=== PATIENT | female | born 1965 | race Caucasian/White ===

== ENCOUNTER → 2016-04-14 | Outpatient (CLI) | payer MEDICARE ==
--- NOTE | 2016-04-14 17:48 | CT ---
EXAMINATION TYPE: CT sinus wo con DATE OF EXAM: 04/14/2016 5:32 PM COMPARISON: NONE HISTORY: PT states of chronic sinus infections and headaches. CT DLP: 602 mGycm Automated exposure control for dose reduction was used. FINDINGS: There is previous surgery with osteotomy of the medial wall of the maxillary sinuses. There is normal aeration of the paranasal sinuses. I see no bony destructive process. Orbital margins are intact. Ma xilla is intact. There is normal aeration of the visualized mastoid air cells. I see no bony destruct annemarie process. IMPRESSION: NEGATIVE CT SCAN OF THE PARANASAL SINUSES.
== END | disposition home or self-care (01) ==
LOC: MERGE 17:12 → RADCTMAIN 17:12
PROVIDERS: ATTEND Otolaryngology
DX: J32.9 Chronic sinusitis, unspecified (principal)
CPT/HCPCS: 70486

== ENCOUNTER 2016-05-07 13:09 | Emergency (ER) | payer MEDICARE, OTHER ==
[2016-05-07 13:18] VITALS: BP 176/87; PULSE 70; RESP 18; TEMP 98.6
--- NOTE | 2016-05-07 14:15 | ED ---
General Adult HPI - General Chief complaint: Dental/Oral Stated complaint: left side pain, speech issues Time Seen by Provider: 05/07/16 13:49 Source: patient Mode of arrival: ambulatory Limitations: no limitations - History of Present Illness Initial comments: This is a 51-year-old female presents emergency department for left-sided facial pain. The patient has a history of multiple sinus surgeries and sinusitis in the past. She states that she was laying down also got an intense throbbing shooting pain on the left side of her face. She states that it then radiated down into her neck and she felt like she had a raspy voice. She states that this lasted proximally one hour. She took a Motrin and it went away. She denied any slurred speech or difficult swallowing. No weakness in her upper or lower extremities. No facial drooping per family. The patient denies any history of this in the past. She does have a history of fibromyalgia as well. She currently states that her symptoms have mostly resolved and she has no discomfort at this time. No other complaints. - Related Data Previous Rx's Medication Instructions Recorded carBAMazepine [Carbatrol] 200 mg PO Q12H #20 cpmp.12hr 05/07/16 Allergies Allergy/AdvReac Type Severity Reaction Status Date / Time No Known Allergies Allergy Verified 05/07/16 13:18 Review of Systems ROS Statement: Those systems with pertinent positive or pertinent negative responses have been documented in the HPI. ROS Other: All systems not noted in ROS Statement are negative. Past Medical History Past Medical History: Fibromyalgia, Hyperlipidemia History of Any Multi-Drug Resistant Organisms: None Reported Past Surgical History: Section Additional Past Surgical History / Comment(s): Sinus surgery Past Psychological History: No Psychological Hx Reported Smoking Status: Current every day smoker Past Alcohol Use History: None Reported Past Drug Use History: None Reported General Exam - General Exam Comments Initial Comments: Constitutional: Awake alert Appears comfortable Head: Normocephalic atraumatic , mild tenderness to palpation over the left cheek and anterior to the left auricle Eyes: no conjunctival injection No scleral icterus EOMI ENT: TMs clear bilaterally, oropharynx is nonerythematous and non-edematous, no sinus tenderness, no rhinitis, no rhinorrhea Neck: No JVD Supple Heart: Regular rate rhythm normal S1-S2 no murmurs Lungs: Clear to auscultation bilaterally No wheezing No rales Abdomen: Soft nondistended nontender Extremities: Non edematous DP pulses intact Radial pulses intact Neuro: A&Ox3 renal nerves II through XII are grossly intact, 5 out of 5 strength in upper and lower extremities bilaterally, no ataxia on examination, no sensory deficits. Psych: Appropriate mood and affect Limitations: no limitations Course Vital Signs 05/07/16 13:14 Temperature 98.6 F Pulse Rate 70 Respiratory 18 Rate Blood Pressure 176/87 O2 Sat by Pulse 99 Oximetry Medical Decision Making - Medical Decision Making Is a 51-year-old female presented for left facial pain that since resolved. Patient has no focal findings on examination. This time I thinking the patient may have trigeminal neuralgia based on her symptoms and the intensity of them. Since this is her first time I recommended that she follow-up with her primary doctor in Dr. Morales with neurology. I did write her a prescription for carbamazepine however told her not to start it unless she has recurrent symptoms and after she's been evaluated by Dr. Cuellar. She can return if she has worsening or changing symptoms. All questions were answered. Disposition Clinical Impression: Facial pain Disposition: HOME SELF-CARE Condition: Stable Instructions: Trigeminal Neuralgia (ED) Prescriptions: carBAMazepine [Carbatrol] 200 mg PO Q12H #20 cpmp.12hr Referrals: Ho Ford MD [Primary Care Provider] - 1-2 days Xi Morlaes MD [STAFF PHYSICIAN] - 1-2 days
== END 2016-05-07 14:34 | disposition home or self-care (01) ==
LOC: EC 13:09
DX: R51 Headache (principal); F17.200 Nicotine dependence, unspecified, uncomplicated
CPT/HCPCS: 99283

== ENCOUNTER 2016-07-14 20:26 | Emergency (ER) | payer MEDICARE, OTHER ==
[2016-07-14] MEDS ORDERED: IPRATROPIUM-ALBUTEROL 3 ML NEB INHALATION STA (21:37)
--- NOTE | 2016-07-14 21:42 | ED ---
General Adult HPI - General Chief complaint: Upper Respiratory Infection Stated complaint: SOB Time Seen by Provider: 07/14/16 21:15 Source: patient, RN notes reviewed Mode of arrival: ambulatory Limitations: no limitations - History of Present Illness Initial comments: Patient is a 51-year-old female presents to the emergency room for evaluation of shortness of breath. Patient states she developed cough and congestion on Thursday. Patient states she went to her primary care provider on and was placed on Augmentin and steroid taper for bronchitis. Patient states she began taking medications on Thursday. Patient states while lying in bed this afternoon she feel rattling in her chest and began feeling chest tightness. Patient states she has been feeling increasingly short of breath. Patient denies any significant chest pain. Patient does state that she feels very clammy. Patient states she smokes about half pack per day. Patient denies dizziness or headache. Patient denies nausea or vomiting. Patient denies abdominal pain. Patient states she is coughing up a slight amount of sputum. Patient states she is here to make sure she doesn't have pneumonia. - Related Data Home Medications Medication Instructions Recorded Confirmed Pregabalin [Lyrica] 300 mg PO BID 02/08/14 07/14/16 traMADol HCL [Ultram] 50 mg PO BID 02/08/14 07/14/16 Albuterol Sulfate [Ventolin HFA] 2 puff INHALATION RT-Q6H PRN 07/14/16 07/14/16 Amoxicillin/Potassium Clav 2 tab PO Q12HR 07/14/16 07/14/16 [Augmentin Xr 1,000-62.5 Tab] Dexamethasone See Taper PO DIRECTED 07/14/16 07/14/16 Previous Rx's Medication Instructions Recorded Albuterol Inhaler [Ventolin Hfa 1 - 2 puff INHALATION Q6HR PRN #1 07/14/16 Inhaler] inhaler Allergies Allergy/AdvReac Type Severity Reaction Status Date / Time No Known Allergies Allergy Verified 07/14/16 22:06 Review of Systems ROS Statement: Those systems with pertinent positive or pertinent negative responses have been documented in the HPI. ROS Other: All systems not noted in ROS Statement are negative. Past Medical History Past Medical History: Fibromyalgia, Hyperlipidemia Additional Past Medical History / Comment(s): UTI , bronchitis, kidney stones History of Any Multi-Drug Resistant Organisms: None Reported Past Surgical History: Section, Uterine Ablation Additional Past Surgical History / Comment(s): sinus surgery x 3 Past Psychological History: Depression, No Psychological Hx Reported Smoking Status: Current every day smoker Past Alcohol Use History: None Reported Past Drug Use History: None Reported General Exam - General Exam Comments Initial Comments: Sitting in exam room, no acute distress. Limitations: no limitations General appearance: alert, in no apparent distress Head exam: Present: atraumatic, normocephalic, normal inspection Eye exam: Present: normal appearance ENT exam: Present: normal exam Neck exam: Present: normal inspection Respiratory exam: Present: normal lung sounds bilaterally. Absent: respiratory distress Cardiovascular Exam: Present: regular rate, normal rhythm, normal heart sounds Extremities exam: Present: normal inspection Back exam: Present: normal inspection Neurological exam: Present: alert, oriented X3, CN II-XII intact, normal gait Psychiatric exam: Present: normal affect, normal mood Skin exam: Present: warm, dry, intact, normal color. Absent: rash Course Vital Signs 07/14/16 07/14/16 07/14/16 20:36 22:13 22:24 Temperature 98.4 F Pulse Rate 73 73 75 Respiratory 20 Rate Blood Pressure 164/88 O2 Sat by Pulse 99 Oximetry 07/15/16 00:05 Temperature 98.3 F Pulse Rate 68 Respiratory 18 Rate Blood Pressure 148/86 O2 Sat by Pulse 98 Oximetry EKG Findings - EKG Comments: EKG Findings:: Normal sinus rhythm, ventricular rate 65 bpm, IA interval 134 ms , QRS duration 68 ms, QT/QTC 410/426 ms Medical Decision Making - Medical Decision Making Patient is a 51-year-old female presents emergency room for evaluation of chest tightness and cough. Cardiac workup negative for concerning findings. Chest x- ray negative for pneumonia, pleural effusions or pneumothorax. Patient states she feels better after nebulizer treatment. Other labs within normal limits. Advised patient to continue on medications prescribed to her and we'll add on an inhaler as needed. Discussed with patient smoking cessation. Patient states she understands everything that was discussed with her. Return parameters discussed. Case discussed with Dr. Teague. - Lab Data Result diagrams: 07/14/16 21:50 07/14/16 21:50 Lab Results 07/14/16 07/14/16 07/14/16 Range/Units 21:50 21:50 21:50 WBC 6.4 (3.8-10.6) k/uL RBC 5.31 (3.80-5.40) m/uL Hgb 15.7 (11.4-16.0) gm/dL Hct 48.7 H (34.0-46.0) % MCV 91.9 (80.0-100.0) fL MCH 29.7 (25.0-35.0) pg MCHC 32.3 (31.0-37.0) g/dL RDW 14.3 (11.5-15.5) % Plt Count 300 (150-450) k/uL Neutrophils % 77 % Lymphocytes % 18 % Monocytes % 3 % Eosinophils % 0 % Basophils % 0 % Neutrophils # 5.0 (1.3-7.7) k/uL Lymphocytes # 1.1 (1.0-4.8) k/uL Monocytes # 0.2 (0-1.0) k/uL Eosinophils # 0.0 (0-0.7) k/uL Basophils # 0.0 (0-0.2) k/uL PT (9.0-12.0) sec INR (<1.1) APTT (22.0-30.0) sec D-Dimer (<0.60) mg/L FEU Sodium (137-145) mmol/L Potassium (3.5-5.1) mmol/L Chloride (98-107) mmol/L Carbon Dioxide (22-30) mmol/L Anion Gap mmol/L BUN (7-17) mg/dL Creatinine (0.52-1.04) mg/dL Est GFR (MDRD) Af Amer (>60 ml/min/1.73 sqM) Est GFR (MDRD) Non-Af (>60 ml/min/1.73 sqM) Glucose (74-99) mg/dL Calcium (8.4-10.2) mg/dL Magnesium (1.6-2.3) mg/dL Total Bilirubin (0.2-1.3) mg/dL AST (14-36) U/L ALT (9-52) U/L Alkaline Phosphatase (38-126) U/L Total Creatine Kinase 94 (30-135) U/L CK-MB (CK-2) 0.4 (0.0-2.4) ng/mL CK-MB (CK-2) Rel Index 0.4 Troponin I <0.012 (0.000-0.034) ng/mL Total Protein (6.3-8.2) g/dL Albumin (3.5-5.0) g/dL Influenza Type A RNA Not Detected (Not Detectd) Influenza Type B (PCR) Not Detected (Not Detectd) 07/14/16 07/14/16 Range/Units 21:50 21:50 WBC (3.8-10.6) k/uL RBC (3.80-5.40) m/uL Hgb (11.4-16.0) gm/dL Hct (34.0-46.0) % MCV (80.0-100.0) fL MCH (25.0-35.0) pg MCHC (31.0-37.0) g/dL RDW (11.5-15.5) % Plt Count (150-450) k/uL Neutrophils % % Lymphocytes % % Monocytes % % Eosinophils % % Basophils % % Neutrophils # (1.3-7.7) k/uL Lymphocytes # (1.0-4.8) k/uL Monocytes # (0-1.0) k/uL Eosinophils # (0-0.7) k/uL Basophils # (0-0.2) k/uL PT 9.7 (9.0-12.0) sec INR 0.9 (<1.1) APTT 22.8 (22.0-30.0) sec D-Dimer 0.55 (<0.60) mg/L FEU Sodium 145 (137-145) mmol/L Potassium 4.9 (3.5-5.1) mmol/L Chloride 108 H (98-107) mmol/L Carbon Dioxide 24 (22-30) mmol/L Anion Gap 13 mmol/L BUN 12 (7-17) mg/dL Creatinine 0.71 (0.52-1.04) mg/dL Est GFR (MDRD) Af Amer >60 (>60 ml/min/1.73 sqM) Est GFR (MDRD) Non-Af >60 (>60 ml/min/1.73 sqM) Glucose 106 H (74-99) mg/dL Calcium 9.9 (8.4-10.2) mg/dL Magnesium 2.1 (1.6-2.3) mg/dL Total Bilirubin 0.7 (0.2-1.3) mg/dL AST 37 H (14-36) U/L ALT 56 H (9-52) U/L Alkaline Phosphatase 107 (38-126) U/L Total Creatine Kinase (30-135) U/L CK-MB (CK-2) (0.0-2.4) ng/mL CK-MB (CK-2) Rel Index Troponin I (0.000-0.034) ng/mL Total Protein 8.4 H (6.3-8.2) g/dL Albumin 4.7 (3.5-5.0) g/dL Influenza Type A RNA (Not Detectd) Influenza Type B (PCR) (Not Detectd) - Radiology Data Radiology results: report reviewed, image reviewed Disposition Clinical Impression: Upper respiratory infection Disposition: HOME SELF-CARE Condition: Good Instructions: Upper Respiratory Infection (ED), How to Stop Smoking (ED) Additional Instructions: Continue with prescribed medications as directed. Use inhaler as needed. Refrain from smoking. Please follow up with primary care provider in 1-2 days. If any new symptom arises or symptoms worsen, return to ER as soon as possible. Prescriptions: Albuterol Inhaler [Ventolin Hfa Inhaler] 1 - 2 puff INHALATION Q6HR PRN #1 inhaler PRN Reason: Shortness Of Breath Referrals: Ho Ford MD [Primary Care Provider] - 1-2 days Time of Disposition: 23:55
[2016-07-14 22:20] LABS: Basophils % (A) 0 %; CH 30.4; CHCM 33.4; Eosinophils % (A) 0 %; HCT 48.7 % (34.0-46.0); HDW 2.81; HGB 15.7 gm/dL (11.4-16.0); Luc % (Auto) 2; Lymphocytes # (A) 1.1 k/uL (1.0-4.8); Lymphocytes % (A) 18 %; MCH 29.7 pg (25.0-35.0); MCHC 32.3 g/dL (31.0-37.0); MCV 91.9 fL (80.0-100.0); Monocytes # (A) 0.2 k/uL (0-1.0); Monocytes % (A) 3 %; Neutrophils % (A) 77 %; RBC 5.31 m/uL (3.80-5.40); RDW 14.3 % (11.5-15.5); WBC 6.4 k/uL (3.8-10.6); WBC (Perox) 6.46
[2016-07-14 22:31] LABS: INR 0.9 (<1.1); Partial Thromboplastin Time 22.8 sec (22.0-30.0); Prothrombin Time 9.7 sec (9.0-12.0)
[2016-07-14 22:38] LABS: ALT 56 U/L (9-52); AST 37 U/L (14-36); Alkaline Phosphatase 107 U/L (38-126); Blood Urea Nitrogen 12 mg/dL (7-17); Calcium 9.9 mg/dL (8.4-10.2); Carbon Dioxide 24 mmol/L (22-30); Glucose 106 mg/dL (74-99); Magnesium 2.1 mg/dL (1.6-2.3); Non-African American GFR(MDRD) >60 (>60 ml/min/1.73 sqM); Potassium 4.9 mmol/L (3.5-5.1); Sodium 145 mmol/L (137-145); Total Bilirubin 0.7 mg/dL (0.2-1.3); Total Protein 8.4 g/dL (6.3-8.2)
[2016-07-14 22:42] LABS: Anion Gap 13 mmol/L; Chloride 108 mmol/L (98-107)
[2016-07-14 22:43] LABS: Creatine Kinase 94 U/L (30-135)
[2016-07-14 22:56] LABS: Creatine Kinase MB 0.4 ng/mL (0.0-2.4); Troponin I <0.012 ng/mL (0.000-0.034)
--- NOTE | 2016-07-14 23:31 | XR ---
EXAMINATION TYPE: XR chest 2V DATE OF EXAM: 07/14/2016 10:31 PM COMPARISON: 05/26/2014 HISTORY: Chest pain TECHNIQUE: Frontal and lateral views of the chest are obtained. FINDINGS: Heart and mediastinum are normal. Lungs are clear. Diaphragm is normal. Bony thorax is int act. IMPRESSION: Normal chest. No change.
[2016-07-15 00:06] VITALS: BP 148/86; PULSE 68; RESP 18; TEMP 98.3
== END 2016-07-15 00:06 | disposition home or self-care (01) ==
LOC: EC 20:26
DX: J06.9 Acute upper respiratory infection, unspecified (principal); M79.7 Fibromyalgia; F17.200 Nicotine dependence, unspecified, uncomplicated; Z79.899 Other long term (current) drug therapy
CPT/HCPCS: 36415; 71020; 80053; 82550; 82553; 83735; 84484; 85025; 85379; 85610; 85730; 87502; 93005; 94640; 99284

== ENCOUNTER → 2016-07-29 | Outpatient (CLI) | payer MEDICARE, OTHER ==
--- NOTE | 2016-07-29 22:22 | US ---
EXAMINATION TYPE: US kidneys/renal and bladder DATE OF EXAM: 07/29/2016 4:18 PM COMPARISON: NONE CLINICAL HISTORY: 51-year-old female N20.0 Kidney Stone. Right flank/back pain, history of multiple s tones that were removed in 2014 TECHNIQUE: Multiple sonographic images of the kidneys and bladder were obtained. FINDINGS: Right Kidney: 10.9 x 4.5 x 4.5 cm without hydronephrosis. Multiple echogenic foci of present measuri ng 1 cm or less. Left Kidney: 11.1 x 4.7 x 5.5 cm without hydronephrosis. Multiple echogenic foci are present largest measuring 1.2 cm. No gross abnormality of the partially urine distended bladder. Both ureteral jets are visualized. There is an incidental finding of a 5.1 cm simple cyst in the posterior right liver lobe. IMPRESSION: 1. No hydronephrosis. 2. Bilateral nephrolithiasis measuring 1 cm and less on the right and up to 1.2 cm on the left.
== END | disposition home or self-care (01) ==
LOC: MERGE 02-07 14:20 → RADUSWWP 15:56
PROVIDERS: ATTEND Internal Medicine
DX: N20.0 Calculus of kidney (principal)
CPT/HCPCS: 76770

== ENCOUNTER → 2016-08-07 | Outpatient (CLI) | payer MEDICARE, OTHER ==
--- NOTE | 2016-08-07 19:23 | CONS ---
DATE OF CONSULTATION: 08/07/2016 CONSULTATION/NEW PATIENT EVALUATION 51-year-old lady who has been evaluated in [facility] for obstructive sleep apnea-hypopnea syndrome. HISTORY OF PRESENT ILLNESS/SLEEP-WAKE EVALUATION: Patient has history of for obstructive sleep apnea diagnosed in 2012. At that time, apnea-hypopnea index was 17.1 with oxygen desaturation to 83.8%. She was started on treatment. CPAP but secondary to insurance issues she had to return her CPAP machine. SLEEP SCHEDULE: At the present time her sleep schedule is from 11:30 to 1:30 a.m. until 7:00 a.m. on week days and until around 8 to 10 a.m. on weekends. FALLING ASLEEP: Sometimes she has problem with falling asleep. No TV in bedroom. DURING SLEEP: She sleeps on the side position with snoring, witnessed episodes of stopped breathing and awakenings with choking, nocturia, grinding teeth, dry mouth, heartburn, sweating and restless legs. Patient to wake up 4 times from sleep and 4 times she goes to the bathroom. No history of hallucinations, sleep paralysis or cataplexy. DURING THE DAY/WAKE STATE: During the day the patient feels tired, sleepy, has difficulties to pay attention, has problem with memory, concentration, irritability, depression. [place] Sleepiness Scale significantly increased to 15. PAST MEDICAL HISTORY: Positive for fibromyalgia, kidney stones and back problems. PAST SURGICAL HISTORY: Several sinus surgeries. MEDICATIONS: Lyrica, Tramadol. SOCIAL HISTORY: Positive for smoking for about 1 pack a day for 6 years. Alcohol consumption: None. REVIEW OF SYSTEMS: Multiple awakenings from sleep, tiredness and sleepiness during the day. No fevers. No double vision. No recent chest pain. No shortness of breath. No abdominal pain. No bleeding episodes. No blood in urine. No seizure episodes. FAMILY HISTORY: Hypertension, heart problems, hyperlipidemia, stroke, fibromyalgia, arthritis, asthma, sinus problem, bronchitis, lung problems, sleep apnea, snoring, pneumonia, headaches cancer, insomnia, acid reflux, ulcers, diabetes, nasal polyps, thyroid problems, mental illness, restless legs. PHYSICAL EXAMINATION: GENERAL: 51-year-old lady without distress. VITAL SIGNS: BP 165/78, HR 78, RR 12. Height 67-1/2 inches. Weight 206.4. BMI 31.7. Neck 15 inches in circumference. Temp is 97.9. Oxygen saturation at room air 100%. HEENT: PERRLA, EOMI. Evaluation of oropharynx showed low position of soft palate. Nose, some restriction of nasal breathing on the right side. NECK: Supple. No JVD. Thyroid is not palpable. LUNGS: Clear to percussion and to auscultation. Good air exchange. No wheezing or rhonchi. HEART: S1, S2 regular. No murmurs, gallops or rubs. ABDOMEN: Obese, soft and nontender. Bowel sounds are present. No organomegaly appreciated. EXTREMITIES: No clubbing or cyanosis. SCREEN TENDER: Awake, alert, and oriented x3. Cranial nerves 2 to 7 intact. There is no fasciculation or atrophy noted. No focal deficits observed. IMPRESSION: 1. Snoring, multiple awakenings from sleep with nocturia, low position of soft palate, excessive daytime sleepiness. [place] Sleepiness Scale increased to 15, history of obstructive sleep apnea-hypopnea syndrome in the past, obstructive sleep apnea-hypopnea syndrome. 2. Obesity; body mass index 31.7. 3. History of fibromyalgia. 4. History of kidney stones. 5. Back problems. 6. Status post several sinus surgeries. PLAN: 1. Polysomnography for evaluation of patient's breathing during sleep. 2. CPAP/BiPAP titration if sleep study confirms obstructive sleep apnea-hypopnea syndrome. 3. Preferable position during sleep on the side. 4. No driving if patient feels any sleepiness. Patient is aware of civil and criminal liability for unsafe driving. 5. I will see patient for follow-up visit to explain results of the testing and following plan. Thank you very much for referring this patient for evaluation. Sincerely, Eric Figueroa MD, PhD, FAASM. Diplomat of [place] [employer], Sleep Medicine Board by [place] [employer] [place] [employer] [facility] [place]
== END ==
LOC: SLEEP 15:07
PROVIDERS: ATTEND Internal Medicine
DX: G47.33 Obstructive sleep apnea (adult) (pediatric) (principal); E66.9 Obesity, unspecified; M79.7 Fibromyalgia; Z87.442 Personal history of urinary calculi; Z98.890 Other specified postprocedural states; Z79.899 Other long term (current) drug therapy
CPT/HCPCS: 99211

== ENCOUNTER → 2016-10-15 | Outpatient (CLI) | payer MEDICARE, OTHER ==
--- NOTE | 2016-10-15 17:16 | CT ---
EXAMINATION TYPE: CT abdomen pelvis wo con DATE OF EXAM: 10/15/2016 COMPARISON: 02/08/2014 HISTORY: Left sided flank pain CT DLP: 616.3 mGycm Automated exposure control for dose reduction was used. TECHNIQUE: Helical acquisition of images was performed from the lung bases through the pelvis. FINDINGS: Lung bases are clear of consolidation. There is no pleural effusion. Liver spleen pancreas appear normal. There are clips from cholecystectomy. Bile ducts are not dilated . There is a 4.5 cm cyst in the inferior right lobe of the liver. There is no adrenal mass. Kidneys have normal size and contour. There is no hydronephrosis. There is a 1 cm calculus in the pelvis of the left kidney. There is a faint 2 mm calcification in the right ki dney. There are small calcifications in the lower pole right kidney. There is no retroperitoneal adenopathy . There is no ascites. I see no bony destructive process. Appendix appears normal. There is no ascites. Bladder distends smoothly. There is no pelvic mass. I s ee no intestinal wall thickening. There are no dilated loops. IMPRESSION: THERE IS A CALCULUS IN THE PELVIS AND THE LEFT KIDNEY WITHOUT EVIDENCE OF OBSTRUCTION. THERE IS CLEAR ING OF THE LEFT-SIDED HYDRONEPHROSIS COMPARED TO OLD EXAM. BILATERAL SMALL RENAL CALCULI. STABLE HEPA TIC CYST. NORMAL APPENDIX. THERE IS CLEARING OF THE ATELECTASIS AT THE LUNG BASES COMPARED TO OLD EXA M.
== END | disposition home or self-care (01) ==
LOC: RADCTMAIN 16:20
PROVIDERS: ATTEND Urology
DX: N20.0 Calculus of kidney (principal); N13.30 Unspecified hydronephrosis; K76.89 Other specified diseases of liver
CPT/HCPCS: 74176

== ENCOUNTER → 2017-01-05 | Outpatient (CLI) | payer MEDICARE, OTHER ==
--- NOTE | 2017-01-05 23:07 | MR ---
EXAMINATION TYPE: MR neck wo/w con DATE OF EXAM: 01/05/2017 COMPARISON: NONE HISTORY: swollen glands CONTRAST: Standard multiplanar, multisequence MRI departmental protocol utilizing 10 mL intravenous Gadavist ga dolinium contrast. FINDINGS: There is normal branching pattern of the great vessels on the aortic arch. Thyroid gland is symmetric. Submandibular salivary glands are symmetric. The parotid glands are symmetric. There is n o evidence of a pharyngeal mass. There is metal artifact from dental work on the right mandible. Ther e is no evidence of orbital mass. Epiglottis appears normal. There is normal flow void of carotid arteries and jugular veins. The tongu e is symmetric. The tonsils and adenoids are symmetric. There are a few bilateral anterior triangle c ervical lymph nodes. The largest measures up to 15 mm. There are submandibular lymph nodes up to 10 m m. I see no pathologic enhancement. IMPRESSION: There are a few bilateral nonspecific cervical lymph nodes of uncertain significance. No evidence of salivary gland mass.
== END | disposition home or self-care (01) ==
LOC: RADMRIMAIN 17:09
PROVIDERS: ATTEND Otolaryngology
DX: R22.1 Localized swelling, mass and lump, neck (principal)
CPT/HCPCS: 70543; A9581

== ENCOUNTER 2017-04-29 09:37 | Day surgery (SDC) | payer MEDICARE, OTHER ==
[2017-04-28 08:32] VITALS: BMI 29.9
[~2017-04-29 09:37] MED LIST: LACTATED RINGERS 1,000 ML IV SCH
[2017-04-29 10:39] VITALS: TEMP 97.9
[2017-04-29] MEDS ORDERED: LIDOCAINE 1% 20 ML VIAL (10MG/ML) FOR IV START INTRADERMA ONE (10:48)
[2017-04-29] MEDS ORDERED: PROPOFOL 10 MG/ML 20 ML VIAL IV ONE (11:16)
[2017-04-29] MEDS ORDERED: LIDOCAINE 1% INJ 10MG/ML (20 ML MDV) ONE (11:16)
--- NOTE | 2017-04-29 11:34 | P.PCN ---
Date of Procedure: 04/29/17 Procedure(s) Performed: BRIEF HISTORY: Patient is a 52-year-old pleasant white female, scheduled for an elective colonoscopy as a part of evaluation of left lower quadrant abdominal pain as well as chronic diarrhea for the last 3 weeks' duration. PROCEDURE PERFORMED: Colonoscopy with biopsy. PREOPERATIVE DIAGNOSIS: Abdominal pain/chronic diarrhea of 3 weeks' duration. IV sedation per Anesthesia. PROCEDURE: After informed consent was obtained, the patient, was brought into the endoscopy unit. IV sedation was administered by Anesthesia under continuous monitoring. Digital rectal examination was normal. Initially the Olympus CF- 160 flexible video colonoscope was then inserted in the rectum, gradually advanced into the cecum without any difficulty. Careful examination was performed as the scope was gradually being withdrawn. Ileocecal valve and the appendiceal orifice were visualized and appeared normal. Terminal ileum was intubated and 20 cm visualized and appeared normal. Prep was excellent. Mucosa of the cecum, ascending colon, transverse colon, descending colon, sigmoid colon , and rectum appeared normal. Random biopsies were done from ascending and descending colon to rule out microscopic/collagenous colitis. Retroflexion was performed in the rectum and no lesions were seen. The patient tolerated the procedure well. IMPRESSION: Normal-appearing colon from rectum to cecum with no evidence of colorectal neoplasia or colitis . RECOMMENDATIONS: Findings of this examination were discussed with the patient as well as a family. She was advised to follow with the biopsy results. She can have a repeat colonoscopy in 10 years.
[2017-04-29 11:56] VITALS: BP 132/74; PULSE 60; RESP 16
== END 2017-04-29 12:29 | disposition home or self-care (01) ==
LOC: ORWHC2ENDO 09:37
PROVIDERS: ATTEND Internal Medicine Gastroenterology
DX: R19.7 Diarrhea, unspecified (principal); R10.32 Left lower quadrant pain; F17.200 Nicotine dependence, unspecified, uncomplicated; G89.29 Other chronic pain; Z98.890 Other specified postprocedural states; Z79.899 Other long term (current) drug therapy; Z79.891 Long term (current) use of opiate analgesic
CPT/HCPCS: 45380; 88305; J2001; J2704

== ENCOUNTER → 2017-09-24 | Outpatient (CLI) | payer MEDICARE, OTHER ==
--- NOTE | 2017-09-24 13:37 | XR ---
EXAMINATION TYPE: XR KUB DATE OF EXAM: 09/24/2017 HISTORY: Pain Comparison: 02/08/2014 Single KUB is submitted for interpretation. Findings: Right renal calculi: Multiple right-sided renal calculi with the largest at the mid depth measuring 9 mm unchanged from prior study. Right ureteral calculi: None Visualized. Left renal calculi: 3 or 4 small left-sided renal calculi are clearly visible and measure up to 2 mm . Overall appearance is improved relative to the prior study. Left ureteral calculi: None Visualized. Pelvic calcifications: None Visualized. Bowel gas pattern is unremarkable. No free air. No mass effects. IMPRESSION: 1. Bilateral nephrolithiasis as discussed.
== END | disposition home or self-care (01) ==
LOC: RADXRMAIN 13:10
PROVIDERS: ATTEND Urology
DX: N20.0 Calculus of kidney (principal)
CPT/HCPCS: 74018

== ENCOUNTER → 2018-11-27 | Outpatient (CLI) | payer MEDICARE ==
--- NOTE | 2018-11-28 07:18 | XR ---
EXAMINATION TYPE: XR KUB DATE OF EXAM: 11/27/2018 1:42 PM CLINICAL HISTORY: Bilateral renal stones TECHNIQUE: Single supine KUB image of the abdomen is obtained. COMPARISON: 09/24/2017. FINDINGS: There is a left renal calculus measuring approximately 9 mm. The previously seen 9 mm right renal calculus is vaguely questioned. Additional 4 mm and 3 mm right lower pole calculi are seen. No new calculi along the courses the ureters or within the pelvis. Cholecystectomy clips are seen. No d ilated bowel. Osseous structures appear intact.. IMPRESSION: Bilateral nephrolithiasis although calculi appear in different locations in different siz es than the prior of 2017.
== END | disposition home or self-care (01) ==
LOC: RADXRMAIN 13:15
PROVIDERS: ATTEND Urology
DX: N20.0 Calculus of kidney (principal)
CPT/HCPCS: 74018

== ENCOUNTER → 2018-12-16 | Outpatient (CLI) | payer MEDICARE ==
--- NOTE | 2018-12-16 14:49 | XR ---
EXAMINATION TYPE: XR KUB DATE OF EXAM: 12/16/2018 HISTORY: Pain Comparison: 11/27/2018 Single KUB is submitted for interpretation. Findings: Right renal calculi: None Visualized. Right ureteral calculi: Left UPJ calculus measuring 5.4 mm. Left renal calculi: None Visualized. Left ureteral calculi: None Visualized. Pelvic calcifications: None Visualized. Bowel gas pattern is unremarkable. No free air. No mass effects. IMPRESSION: 1. Left UPJ calculus measuring 5.4 mm.
== END | disposition home or self-care (01) ==
LOC: RADXRMAIN 14:12
PROVIDERS: ATTEND Urology
DX: N20.0 Calculus of kidney (principal)
CPT/HCPCS: 74018

== ENCOUNTER → 2019-01-10 | Outpatient (CLI) | payer MEDICARE, OTHER ==
[2019-01-10 14:39] LABS: Basophils # (A) 0.1 k/uL (0-0.2); Basophils % (A) 1 %; Eosinophils # (A) 0.5 k/uL (0-0.7); Eosinophils % (A) 6 %; HCT 40.9 % (34.0-46.0); HGB 13.7 gm/dL (11.4-16.0); Lymphocytes % (A) 21 %; MCH 29.7 pg (25.0-35.0); MCHC 33.5 g/dL (31.0-37.0); MCV 88.7 fL (80.0-100.0); Mean Platelet Volume 6.7; Monocytes # (A) 0.4 k/uL (0-1.0); Monocytes % (A) 4 %; Neutrophils # (A) 6.1 k/uL (1.3-7.7); Neutrophils % (A) 66 %; Platelet Count 252 k/uL (150-450); RBC 4.61 m/uL (3.80-5.40); RDW 14.4 % (11.5-15.5); WBC 9.2 k/uL (3.8-10.6)
[2019-01-10 14:43] LABS: African American GFR (CKD) >90 (>60 ml/min/1.73 sqM); Blood Urea Nitrogen 15 mg/dL (7-17)
== END | disposition home or self-care (01) ==
LOC: LABPAT 13:59
PROVIDERS: ATTEND Urology
DX: Z01.812 Encounter for preprocedural laboratory examination (principal); N20.0 Calculus of kidney; R35.0 Frequency of micturition
CPT/HCPCS: 82565; 84520; 85025; 87086

== ENCOUNTER 2019-01-17 05:36 | Day surgery (SDC) | payer MEDICARE, OTHER ==
--- NOTE | 2019-01-12 09:07 | P.GSHP ---
History of Present Illness H&P Date: 01/12/19 Chief Complaint: left renal calculus The patient is a 53-year-old female with a history of urolithiasis who says she's passed 3 or 4 stones from the left kidney beginning in September 2018. She last passed a stone in late November which was analyzed and was 85% calcium oxalate monohydrate with 3% uric acid. She continues to have pain in the left flank. A KUB on 12/16/2018 identified a 5 x 7 mm calculus at the left ureteral pelvic junction. I discussed options including further observation, ureteroscopy with lithotripsy or ESWL. The patient has elected on ESWL. She is aware that due to the stone composition of her previous stones the effectiveness of ESWL may be compromised. - Constitutional Constitutional: Denies chills, Denies fever - Cardiovascular Cardiovascular: Denies chest pain, Denies shortness of breath - Respiratory Respiratory: Denies cough - Gastrointestinal Gastrointestinal: Reports as per HPI - Genitourinary (Female) Genitourinary: Denies dysuria, Denies hematuria Past Medical History Past Medical History: Fibromyalgia, Hyperlipidemia, Skin Disorder Additional Past Medical History / Comment(s): recent hospital admission for dehydration-had diarrhea for approx 1 week, rash,hx UTI , bronchitis, kidney stones,steroid Mar 2017 History of Any Multi-Drug Resistant Organisms: None Reported Past Surgical History: Section, Uterine Ablation Additional Past Surgical History / Comment(s): sinus surgery x 3, left ureteroscopy with lithotripsy-2016 and 2014, right ureteroscopy with lithotripsy 2014 Past Anesthesia/Blood Transfusion Reactions: No Reported Reaction Past Psychological History: Depression Smoking Status: Current every day smoker Past Alcohol Use History: None Reported Additional Past Alcohol Use History / Comment(s): started started smoking at age 46,<1ppd Past Drug Use History: None Reported Medications and Allergies Home Medications Medication Instructions Recorded Confirmed Type Pregabalin [Lyrica] 300 mg PO BID 02/08/14 04/29/17 History traMADol HCL [Ultram] 50 mg PO BID 02/08/14 04/29/17 History buPROPion HCL [Wellbutrin SR] 150 mg PO QAM 04/23/17 04/29/17 History Allergies Allergy/AdvReac Type Severity Reaction Status Date / Time No Known Allergies Allergy Verified 01/31/18 10:31 Surgical - Exam - General well developed, well nourished, no distress - ENT no hearing loss - Neck no masses, no lymphadectomy - Cardiovascular Rhythm: regular Abnormal Heart Sounds: no systolic murmur, no diastolic murmur - Abdomen Abdomen: soft, no organomegaly Assessment and Plan (1) Left renal stone Narrative/Plan: The patient will undergo ESWL treatment of her left renal calculus performed by Dr. Greenwood. She is aware of the operative risks which include anesthesia, intrarenal or perinephric bleeding, inability to fragment the calculus and ureteral obstruction from a calculus fragment which may require an additional procedure for removal. Status: Acute Code(s): N20.0 - CALCULUS OF KIDNEY SNOMED Code(s): 33520243
[2019-01-13 09:14] VITALS: BMI 30.7
[~2019-01-17 05:36] MED LIST changes: -LACTATED RINGERS 1,000 ML IV SCH; +Pre Op ABX Message 1 EACH MISC MISCELLANE ONE
[2019-01-17] MEDS ORDERED: LIDOCAINE 1% 20 ML VIAL (10MG/ML) FOR IV START INTRADERMA PRN (06:06)
[2019-01-17] MEDS ORDERED: LACTATED RINGERS 1,000 ML IV SCH (06:06)
[2019-01-17 06:29] VITALS: TEMP 97.4
--- NOTE | 2019-01-17 06:40 | XR ---
EXAMINATION TYPE: XR KUB DATE OF EXAM: 01/17/2019 COMPARISON: 12/16/2018 HISTORY: Left-sided kidney stones TECHNIQUE: 2 views supine FINDINGS: There is no sign of intestinal obstruction or pneumoperitoneum. Fecal pattern is normal. Fe danny pattern obscures calcifications over the kidneys. IMPRESSION: Nonacute abdomen. Fecal material over the kidneys obscures the detail. Small calculi are possible. There is probably no change in 5 mm calculus over the left kidney compared to last exam. Th ere is probably a triangular-shaped 4 mm calculus at the right renal pelvis unchanged.
[2019-01-17] MEDS ORDERED: KETAMINE 10 MG/ML 20 ML VIAL ONE (07:35)
[2019-01-17] MEDS ORDERED: fentaNYL (PF) 50 MCG/ML 2 ML AMP ONE (07:35)
[2019-01-17] MEDS ORDERED: PROPOFOL 10 MG/ML 20 ML VIAL IV ONE (07:35)
[2019-01-17] MEDS ORDERED: LIDOCAINE 1% INJ 10MG/ML (20 ML MDV) ONE (07:35)
[2019-01-17] MEDS ORDERED: MIDAZOLAM 2 MG/2 ML VIAL ONE (07:35)
[2019-01-17] MEDS ORDERED: GLYCOPYRROLATE 0.2 MG/ML 2 ML VIAL ONE (07:35)
--- NOTE | 2019-01-17 08:18 | P.OP ---
Date of Procedure: 01/17/19 Preoperative Diagnosis: Left renal stone Postoperative Diagnosis: Same Procedure(s) Performed: Extracorporeal shockwave lithotripsy left 2500 shocks at energy level IV Anesthesia: MAC Surgeon: Randolph Greenwood Pathology: none sent Condition: stable Disposition: PACU Indications for Procedure: The patient is 54. She has a history kidney stones. She has a symptomatic 7 mm UPJ stone. She comes for shockwave lithotripsy Description of Procedure: Patient is brought to the operating suite. She's placed in the lithotripsy table. The stone was seen in 2 views of fluoroscopy. After adequate IV sedation 2500 shocks at energy level IV administered. Stone appears to fracture nicely. The procedure the patient's awake and returned recovery in good condition. Complications. She'll be discharged home upon recovery and followed in 1 week
[2019-01-17 08:47] VITALS: RESP 18
[2019-01-17] MEDS ORDERED: METOPROLOL TARTRATE 5 MG/5 ML VIAL IVP ONE (09:00)
[2019-01-17 09:16] VITALS: BP 123/87; PULSE 59
== END 2019-01-17 09:32 | disposition home or self-care (01) ==
LOC: ORWHC2ENDO 05:36
PROVIDERS: ATTEND Urology
DX: N20.0 Calculus of kidney (principal); Z87.442 Personal history of urinary calculi; E78.5 Hyperlipidemia, unspecified; M79.7 Fibromyalgia; E86.0 Dehydration; R19.7 Diarrhea, unspecified; F32.9 Major depressive disorder, single episode, unspecified; R21 Rash and other nonspecific skin eruption; F17.210 Nicotine dependence, cigarettes, uncomplicated; Z87.09 Personal history of other diseases of the respiratory system; Z87.448 Personal history of other diseases of urinary system; Z79.891 Long term (current) use of opiate analgesic; Z79.899 Other long term (current) drug therapy
CPT/HCPCS: 74018; 50590; J2250; J2001; J3010; J2704

== ENCOUNTER → 2019-01-25 | Outpatient (CLI) | payer MEDICARE, OTHER ==
--- NOTE | 2019-01-25 15:44 | XR ---
EXAMINATION TYPE: XR KUB DATE OF EXAM: 01/25/2019 3:30 PM CLINICAL HISTORY: Left-sided groin pain after cough TECHNIQUE: Single supine KUB image of the abdomen is obtained. COMPARISON: None. FINDINGS: 6 mm calculus overlies the right renal shadow. Left renal shadow is partially obscured by b owel. Cholecystectomy clips are seen. No suspicious calcifications in the pelvis. Calcified fat necro sis or injection granuloma of the left gluteal subcutaneous tissues. Osseous structures are grossly i ntact. No dilated large or small bowel. IMPRESSION: Solitary 6 mm right calculus. Partial obscuration of the left renal shadow by overlying b owel.
== END | disposition home or self-care (01) ==
LOC: RADXRMAIN 15:13
PROVIDERS: ATTEND Urology
DX: N20.0 Calculus of kidney (principal)
CPT/HCPCS: 74018

== ENCOUNTER → 2019-01-28 | Outpatient (CLI) | payer MEDICARE, OTHER ==
--- NOTE | 2019-01-28 14:06 | CT ---
EXAMINATION TYPE: CT abdomen pelvis wo con DATE OF EXAM: 01/28/2019 COMPARISON: 10/15/2016 HISTORY: Calculus of kidney CT DLP: 835 mGycm Automated exposure control for dose reduction was used. TECHNIQUE: Helical acquisition of images was performed from the lung bases through the pelvis. FINDINGS: LUNG BASES: Subsegmental changes at the lung bases. LIVER/GB: Postcholecystectomy changes are noted. There is a large mass within the posterior segment r ight lobe of the liver measuring 5.2 cm and 1 Hounsfield unit compatible simple cyst PANCREAS: No significant abnormality is seen. SPLEEN: No significant abnormality is seen. ADRENALS: No significant abnormality is seen. KIDNEYS: There is a 5 mm lower pole right renal calculus. URINARY BLADDER: No significant abnormality is seen. ADENOPATHY: None visualized. OSSEOUS STRUCTURES: No significant abnormality is seen. BOWEL: No significant abnormality is seen. OTHER: There is a fat-containing periumbilical within the left lower quadrant on axial image 111 ther e is an area of low attenuation adjacent to the left colon. No definite diverticula are seen. Differe ntial diagnosis would include epiploic appendagitis versus a mild colitis. Report discussed with the referring clinician at 14 :01 on 01/28/2019 IMPRESSION: 1. There is subtle ill attenuation of the fat in the pericolonic region anterior to the distal left colon noted on image 109 and 110. Differential diagnosis includes epiploic appendagitis, omental infa rction. Localized area of colitis in the differential diagnosis. No definite diverticula are seen. Co rrelate clinically.
== END | disposition home or self-care (01) ==
LOC: RADCTMAIN 13:14
PROVIDERS: ATTEND Urology
DX: N20.0 Calculus of kidney (principal)
CPT/HCPCS: 74176

== ENCOUNTER → 2022-11-27 | Outpatient (CLI) | payer MEDICARE, OTHER ==
--- NOTE | 2022-12-10 08:17 | MM ---
Reason for Exam: Screening (asymptomatic). Last mammogram was performed 3 year(s) and 8 month(s) ago. Patient History: Menarche at age 10. First Full-Term at age 17. Postmenopausal. Risk Values: Flores 5 year model risk: 1.0%. NCI Lifetime model risk: 5.5%. Prior Study Comparison: 06/27/2016 Bilateral Screening Mammogram, [facility]. 01/07/2018 Bilateral Screening Mammogram, [place]. 03/04/2019 Bilateral Screening Mammogram, [facility]. Tissue Density: There are scattered fibroglandular densities. Findings: Analyzed By CAD. There is no suspicious group of microcalcifications or new suspicious mass. Overall Assessment: Negative, BI-RAD 1 Management: Screening Mammogram of both breasts in [address] [facility] will attempt to contact patient to return for supplemental views and ultrasound if indicated. Patient should continue monthly self-breast exams. A clinical breast exam by your physician is recommended on an annual basis. This exam should not preclude additional follow-up of suspicious palpable abnormalities. Note on Flores scores and lifetime risk: 1. A Flores score greater than 3% is considered moderate risk. If this is the case, consider specialist referral to assess eligibility for a risk reducing agent. 2. If overall lifetime risk for the development of breast cancer is 20% or higher, the patient may qualify for future screening with alternating mammogram and breast MRI. Electronically signed and approved by: Daquan Boucher DO
== END | disposition home or self-care (01) ==
LOC: RADMAMWWP 15:11
PROVIDERS: ATTEND Family Medicine
DX: Z12.31 Encounter for screening mammogram for malignant neoplasm of breast (principal); Z78.0 Asymptomatic menopausal state
CPT/HCPCS: 77063; 77067

== ENCOUNTER 2022-12-11 13:56 | Observation (INO) | payer MEDICARE, OTHER ==
[2022-12-11] MEDS ORDERED: NITROGLYCERIN OINT 1 INCH/GM PACKET TOPICAL STA (14:58)
[2022-12-11] MEDS ORDERED: ASPIRIN 81 MG PO STA (14:58)
--- NOTE | 2022-12-11 15:05 | ED ---
General Adult HPI - General Chief complaint: Chest Pain Stated complaint: Chest Pain Time Seen by Provider: 12/11/22 14:45 Source: patient, RN notes reviewed, old records reviewed Mode of arrival: EMS Limitations: no limitations - History of Present Illness Initial comments: This is a 57-year-old female with past medical history significant for a stent placement. Patient states she does have high blood pressure. Patient states that she started having left-sided chest pain radiating to her back arm and neck after she exerted himself by walking quickly, hallway at work. Patient states she also short of breath and a little bit sweaty as well as a little bit nauseated. Patient states the pain is gotten better but again it is back and is as bad as it was at work currently. Patient denies any fever chills or cough per patient denies lightheadedness or dizziness. - Related Data Home Medications Medication Instructions Recorded Confirmed Pregabalin [Lyrica] 300 mg PO BID 02/08/14 12/11/22 traMADol HCL [Ultram] 50 mg PO TID PRN 02/08/14 12/11/22 Aspirin EC [Ecotrin Low Dose] 81 mg PO DAILY 12/11/22 12/11/22 lisinopriL [Zestril] 20 mg PO DAILY 12/11/22 12/11/22 Allergies Allergy/AdvReac Type Severity Reaction Status Date / Time No Known Allergies Allergy Verified 12/11/22 14:45 Review of Systems ROS Statement: Those systems with pertinent positive or pertinent negative responses have been documented in the HPI. ROS Other: All systems not noted in ROS Statement are negative. Past Medical History Past Medical History: Fibromyalgia, Hyperlipidemia, Skin Disorder Additional Past Medical History / Comment(s): recent hospital admission for dehydration-had diarrhea for approx 1 week, rash,hx UTI , bronchitis, kidney stones,steroid Mar 2017 History of Any Multi-Drug Resistant Organisms: None Reported Past Surgical History: Section, Uterine Ablation Additional Past Surgical History / Comment(s): sinus surgery x 3,lithotripsy Past Anesthesia/Blood Transfusion Reactions: No Reported Reaction Past Psychological History: Depression Past Alcohol Use History: None Reported Past Drug Use History: None Reported - Past Family History Sister(s) Family Medical History: Cancer Additional Family Medical History / Comment(s): lung cancer at age 31 General Exam - General Exam Comments Initial Comments: GENERAL: Patient is well-developed and well-nourished. Patient is nontoxic and well- hydrated and is in mild distress. ENT: Neck is soft and supple. No significant lymphadenopathy is noted. Oropharynx is clear. Moist mucous membranes. Neck has full range of motion without eliciting any pain. EYES: The sclera were anicteric and conjunctiva were pink and moist. Extraocular mo vements were intact and pupils were equal round and reactive to light. Eyelids were unremarkable. PULMONARY: Unlabored respirations. Good breath sounds bilaterally. No audible rales rhonchi or wheezing was noted. CARDIOVASCULAR: There is a regular rate and rhythm without any murmurs gallops or rubs. ABDOMEN: Soft and nontender with normal bowel sounds. SKIN: Skin is clear with no lesions or rashes and otherwise unremarkable. NEUROLOGIC: Patient is alert and oriented x3. Cranial nerves II through XII are grossly intact. Motor and sensory are also intact. Normal speech, volume and content. Symmetrical smile. MUSCULOSKELETAL: Normal extremities with adequate strength and full range of motion. LYMPHATICS: No significant lymphadenopathy is noted PSYCHIATRIC: Normal psychiatric evaluation. Limitations: no limitations Course Vital Signs 12/11/22 12/11/22 12/11/22 14:05 16:18 17:48 Temperature 98.6 F 98.2 F Pulse Rate 80 63 67 Respiratory 18 18 16 Rate Blood Pressure 146/89 140/84 149/96 O2 Sat by Pulse 99 99 100 Oximetry 12/11/22 18:06 Temperature Pulse Rate 65 Respiratory 17 Rate Blood Pressure 146/91 O2 Sat by Pulse 99 Oximetry Medical Decision Making - Medical Decision Making EKG was interpreted by myself. EKG shows sinus rhythm at 65 bpm MA interval 169 QRS is 77 QT interval 36 QTC is 398. Patient's EKG shows no ST segment elevation or depression. Repeat EKG was done and it was interpreted by myself. EKG shows a sinus rhythm at 64 bpm MA interval 180 QRS 7090 QT interval 33 QTC is 393. Patient's EKG shows no ST segment elevation Was pt. sent in by a medical professional or institution (, PA, BILLET CUTTER, urgent care, hospital, or fpc...) When possible be specific @ -[No] Did you speak to anyone other than the patient for history (EMS, parent, family, police, friend...)? What history was obtained from this source @ -[No] Did you review nursing and triage notes (agree or disagree)? Why? @ -[I reviewed and agree with nursing and triage notes] Were old charts reviewed (outside hosp., previous admission, EMS record, old EKG, old radiological studies, urgent care reports/EKG's, fpc records)? Report findings @ -I reviewed prior charts apart (this patient Differential Diagnosis (chest pain, altered mental status, abdominal pain women, abdominal pain men, vaginal bleeding, weakness, fever, dyspnea, syncope, headache, dizziness, GI bleed, back pain, seizure, CVA, palpatations, mental health, musculoskeletal)? @ -Differential Chest Pain: Stable Angina, Unstable Angina, STEMI, NSTEMI Aortic Dissection, Pneumothorax, Musculoskeletal, Esophageal Spasm GERD, Cholecystitis, Pancreatitis, Zoster, this is not meant to be an all-inclusive list. EKG interpreted by me (3pts min.). @ -[As above] X-rays interpreted by me (1pt min.). @ -Chest x-ray shows no acute abnormality CT interpreted by me (1pt min.). @ -CT of the chest shows no PE or acute abnormality U/S interpreted by me (1pt. min.). @ -[None done] What testing was considered but not performed or refused? (CT, X-rays, U/S, labs)? Why? @ -[None] What meds were considered but not given or refused? Why? @ -[None] Did you discuss the management of the patient with other professionals (professionals i.e. , PA, BILLET CUTTER, lab, RT, psych nurse, social contact worker, paleologist, teacher, customer service security officer, hospitality services manager)? Give summary @ -I spoke with Dr. Siddiqi she agreed to admit the patient Was smoking cessation discussed for >3mins.? @ -[No] Was critical care preformed (if so, how long)? @ -[No] Were there social determinants of health that impacted care today? How? (Homelessness, low income, unemployed, alcoholism, drug addiction, transpo rtation, low edu. Level, literacy, decrease access to med. care, [facility], rehab)? @ -[No] Was there de-escalation of care discussed even if they declined (Discuss DNR or withdrawal of care, Hospice)? DNR status @ -[No] What co-morbidities impacted this encounter? (DM, HTN, Smoking, COPD, CAD, Cancer, CVA, ARF, Chemo, Hep., AIDS, mental health diagnosis, sleep apnea, morbid obesity)? @ -[None] Was patient admitted / discharged? Hospital course, mention meds given and route, prescriptions, significant lab abnormalities, going to OR and other pertinent info. @ -Patient continued to have some intermittent chest pain in the emergency department so admitted the patient Dr. Siddiqi I wrote admitting orders I consulted cardiology. Undiagnosed new problem with uncertain prognosis? @ -[No] Drug Therapy requiring intensive monitoring for toxicity (Heparin, Nitro, Insulin, Cardizem)? @ -[No] Were any procedures done? @ -[No] Diagnosis/symptom? @ -Chest pain Acute, or Chronic, or Acute on Chronic? @ -Acute Uncomplicated (without systemic symptoms) or Complicated (systemic symptoms)? @ -Complicated Side effects of treatment? @ -[No] Exacerbation, Progression, or Severe Exacerbation? @ -[No] Poses a threat to life or bodily function? How? (Chest pain, USA, SD, pneumonia, PE, COPD, DKA, ARF, appy, cholecystitis, CVA, Diverticulitis, Homicidal, Suicidal, threat to staff... and all critical care pts) @ -Yes this could lead to an SD and poor perfusion and end organ dysfunction - Lab Data Result diagrams: 12/11/22 15:33 12/11/22 16:03 Lab Results 12/11/22 12/11/22 12/11/22 Range/Units 15:16 15:16 15:33 WBC 6.1 (3.8-10.6) k/uL RBC 4.94 (3.80-5.40) m/uL Hgb 14.6 (11.4-16.0) gm/dL Hct 44.8 (34.0-46.0) % MCV 90.8 (80.0-100.0) fL MCH 29.6 (25.0-35.0) pg MCHC 32.6 (31.0-37.0) g/dL RDW 13.8 (11.5-15.5) % Plt Count 288 (150-450) k/uL MPV 8.8 Neutrophils % 52 % Lymphocytes % 39 % Monocytes % 4 % Eosinophils % 2 % Basophils % 0 % Neutrophils # 3.2 (1.3-7.7) k/uL Lymphocytes # 2.4 (1.0-4.8) k/uL Monocytes # 0.3 (0-1.0) k/uL Eosinophils # 0.2 (0-0.7) k/uL Basophils # 0.0 (0-0.2) k/uL PT (9.0-12.0) sec INR (<1.2) APTT (22.0-30.0) sec D-Dimer (<0.60) mg/L FEU Sodium 136 L (137-145) mmol/L Potassium 6.0 H (3.5-5.1) mmol/L Chloride 109 H (98-107) mmol/L Carbon Dioxide 24 (22-30) mmol/L Anion Gap 3 mmol/L BUN 10 (7-17) mg/dL Creatinine 0.86 (0.52-1.04) mg/dL Est GFR (CKD-EPI)AfAm 86 (>60 ml/min/1.73 sqM) Est GFR (CKD-EPI)NonAf 75 (>60 ml/min/1.73 sqM) Glucose 94 (74-99) mg/dL Calcium 9.1 (8.4-10.2) mg/dL Magnesium 1.9 (1.6-2.3) mg/dL Total Bilirubin 1.1 (0.2-1.3) mg/dL AST 48 H (14-36) U/L ALT 26 (4-34) U/L Alkaline Phosphatase 78 (38-126) U/L Troponin I 0.017 (0.000-0.034) ng/mL Total Protein 7.3 (6.3-8.2) g/dL Albumin 4.2 (3.5-5.0) g/dL 12/11/22 12/11/22 12/11/22 Range/Units 15:58 16:03 16:03 WBC (3.8-10.6) k/uL RBC (3.80-5.40) m/uL Hgb (11.4-16.0) gm/dL Hct (34.0-46.0) % MCV (80.0-100.0) fL MCH (25.0-35.0) pg MCHC (31.0-37.0) g/dL RDW (11.5-15.5) % Plt Count (150-450) k/uL MPV Neutrophils % % Lymphocytes % % Monocytes % % Eosinophils % % Basophils % % Neutrophils # (1.3-7.7) k/uL Lymphocytes # (1.0-4.8) k/uL Monocytes # (0-1.0) k/uL Eosinophils # (0-0.7) k/uL Basophils # (0-0.2) k/uL PT 10.0 (9.0-12.0) sec INR 0.9 (<1.2) APTT 22.5 (22.0-30.0) sec D-Dimer 0.88 H (<0.60) mg/L FEU Sodium 140 (137-145) mmol/L Potassium 4.1 (3.5-5.1) mmol/L Chloride 110 H (98-107) mmol/L Carbon Dioxide 22 (22-30) mmol/L Anion Gap 8 mmol/L BUN 10 (7-17) mg/dL Creatinine 0.88 (0.52-1.04) mg/dL Est GFR (CKD-EPI)AfAm 84 (>60 ml/min/1.73 sqM) Est GFR (CKD-EPI)NonAf 73 (>60 ml/min/1.73 sqM) Glucose 93 (74-99) mg/dL Calcium 10.0 (8.4-10.2) mg/dL Magnesium 2.0 (1.6-2.3) mg/dL Total Bilirubin 0.8 (0.2-1.3) mg/dL AST 30 (14-36) U/L ALT 26 (4-34) U/L Alkaline Phosphatase 110 (38-126) U/L Troponin I <0.012 (0.000-0.034) ng/mL Total Protein 7.6 (6.3-8.2) g/dL Albumin 4.5 (3.5-5.0) g/dL Disposition Clinical Impression: Chest pain Disposition: ADMITTED IP TO THIS [facility] Referrals: Luke Reed [Primary Care Provider] - 1-2 days Time of Disposition: 18:53
[2022-12-11 15:53] LABS: ALT 26 U/L (4-34); African American GFR (CKD) 86 (>60 ml/min/1.73 sqM); Anion Gap 3 mmol/L; Blood Urea Nitrogen 10 mg/dL (7-17); Calcium 9.1 mg/dL (8.4-10.2); Carbon Dioxide 24 mmol/L (22-30); Chloride 109 mmol/L (98-107); Glucose 94 mg/dL (74-99); Non-African American GFR(CKD) 75 (>60 ml/min/1.73 sqM); Sodium 136 mmol/L (137-145); Total Bilirubin 1.1 mg/dL (0.2-1.3)
--- NOTE | 2022-12-11 15:54 | XR ---
EXAMINATION TYPE: XR chest 2V DATE OF EXAM: 12/11/2022 COMPARISON: 07/14/2016 HISTORY: Shortness of breath TECHNIQUE: Frontal and lateral views of the chest are obtained. FINDINGS: Scattered senescent parenchymal changes noted. Hyperinflation compatible with COPD. No evidence for infiltrate. No evidence for atelectasis. Heart size is stable. Mediastinal structures are stable and grossly unremarkable. No evidence for hilar prominence. Degenerative changes dorsal spine. IMPRESSION: 1. No evidence for acute pulmonary disease.
[2022-12-11 16:15] LABS: AST 48 U/L (14-36); Alkaline Phosphatase 78 U/L (38-126); Magnesium 1.9 mg/dL (1.6-2.3); Total Protein 7.3 g/dL (6.3-8.2)
[2022-12-11 16:16] LABS: Albumin 4.2 g/dL (3.5-5.0)
[2022-12-11 16:17] LABS: Basophils % (A) 0 %; Eosinophils # (A) 0.2 k/uL (0-0.7); Eosinophils % (A) 2 %; HCT 44.8 % (34.0-46.0); HGB 14.6 gm/dL (11.4-16.0); Lymphocytes # (A) 2.4 k/uL (1.0-4.8); Lymphocytes % (A) 39 %; MCH 29.6 pg (25.0-35.0); MCHC 32.6 g/dL (31.0-37.0); MCV 90.8 fL (80.0-100.0); Mean Platelet Volume 8.8; Monocytes # (A) 0.3 k/uL (0-1.0); Monocytes % (A) 4 %; Neutrophils # (A) 3.2 k/uL (1.3-7.7); Neutrophils % (A) 52 %; Platelet Count 288 k/uL (150-450); RBC 4.94 m/uL (3.80-5.40); RDW 13.8 % (11.5-15.5); WBC 6.1 k/uL (3.8-10.6)
[2022-12-11 16:28] LABS: INR 0.9 (<1.2); Partial Thromboplastin Time 22.5 sec (22.0-30.0)
[2022-12-11 16:36] LABS: ALT 26 U/L (4-34); AST 30 U/L (14-36); African American GFR (CKD) 84 (>60 ml/min/1.73 sqM); Albumin 4.5 g/dL (3.5-5.0); Alkaline Phosphatase 110 U/L (38-126); Anion Gap 8 mmol/L; Blood Urea Nitrogen 10 mg/dL (7-17); Carbon Dioxide 22 mmol/L (22-30); Chloride 110 mmol/L (98-107); Glucose 93 mg/dL (74-99); Non-African American GFR(CKD) 73 (>60 ml/min/1.73 sqM); Potassium 4.1 mmol/L (3.5-5.1); Sodium 140 mmol/L (137-145); Total Bilirubin 0.8 mg/dL (0.2-1.3); Total Protein 7.6 g/dL (6.3-8.2)
--- NOTE | 2022-12-11 17:35 | CT ---
EXAMINATION TYPE: CT chest angio for PE CT DLP: 442.4 mGycm, Automated exposure control for dose reduction was used. DATE OF EXAM: 12/11/2022 5:27 PM COMPARISON: 12/11/2022 CLINICAL INDICATION:Female, 57 years old with history of Elevated d-dimer, chest pain; Chest pain and elevated d-dimer. TECHNIQUE/CONTRAST: CTA scan of the thorax is performed with IV Contrast, patient injected with 54ml mL of Isovue 370, CO P images are created and reviewed these are created on a separate workstation.. FINDINGS: Pulmonary Artery: There is no evidence for a filling defect within the pulmonary vasculature to sugge st acute pulmonary embolism. The pulmonary artery is of normal size. Lungs/Pleura: No evidence of focal consolidation, pleural effusion or pneumothorax. Airway: Large airways are patent. Heart: Heart is mildly enlarged for size. There is suspected stent grafts present within the heart. V asculature: No evidence of aortic aneurysm. Mediastinum: No gross evidence of adenopathy. There is a small hiatal hernia present. Musculoskeletal: Mild degenerative disc disease changes are present throughout the thoracolumbar spin e. Soft Tissues: Unremarkable. Lower neck: No significant findings. Upper Abdomen: Intrahepatic simple cyst. The gallbladder surgically absent. IMPRESSION: 1. No evidence of pulmonary embolism. 2. Mild cardiomegaly. 3. Small hiatal hernia.
[2022-12-11] MEDS ORDERED: NITROGLYCERIN SL TABS 0.4 MG TAB SUBLINGUAL PRN (18:55)
[2022-12-11] MEDS: ACETAMINOPHEN TAB 325 MG TAB PO PRN (21:34)
[2022-12-12] MEDS: NITROGLYCERIN OINT 1 INCH/GM PACKET TOPICAL SCH ×2 (01:19→05:46)
[2022-12-12] MEDS ORDERED: REGADENOSON 0.4 MG/5 ML SYRINGE IV PRN (08:01)
[2022-12-12] MEDS ORDERED: CAFFEINE CITRATE 60 MG/3 ML VIAL IV PRN (08:01)
[2022-12-12] MEDS ORDERED: AMINOPHYLLINE 500 MG/20 ML VIAL IV PRN (08:01)
[2022-12-12 08:19] VITALS: BP 126/80; PULSE 75; RESP 18; TEMP 97.5
[2022-12-12 08:50] LABS: Chol/HDL Ratio 3.95 Ratio; LDL Cholesterol,Calculated 164.5 mg/dL (0.0-131.0)
[2022-12-12] MEDS ORDERED: ASPIRIN 81 MG PO SCH (09:00)
[2022-12-12] MEDS ORDERED: lisinopriL 20 MG TAB PO SCH (09:00)
[2022-12-12] MEDS ORDERED: ASPIRIN 325 MG TAB PO SCH (09:00)
[2022-12-12] MEDS ORDERED: traMADol 50 MG TAB PO PRN (09:34)
--- NOTE | 2022-12-12 09:41 | P.CRDCN ---
History of Present Illness History of present illness: HISTORY OF PRESENT ILLNESS: This is a 57-year-old female with a past medical history significant for coronary artery disease, hypertension, hyperlipidemia with statin intolerance, COPD, and reported black mold exposure. Patient follows in the office with Dr. Arias. We have been asked to see the patient in consultation for chest pain. Patient examined at the bedside. Patient reports she has been having chest pain or pressure for the past couple days. she states that the pain radiated into her neck and her back. She also reports having some shortness of breath. At the time of examination, she currently denies chest pain or pressure. Vital signs are stable. * EKG reveals sinus mechanism with no signs of acute ischemia * Chest xray negative for acute process * chest CT: No evidence for pulmonary embolism. Mild cardiomegaly. Small hiatal hernia. * Current home cardiac medications include aspirin 81 mg daily and lisinopril 20 mg daily * Most recent echocardiogram obtained in August 2022 at [facility] revealed ejection fraction 54% with mild mitral regurgitation. REVIEW OF SYSTEMS: At the time of my exam: CONSTITUTIONAL: Denies fever or chills. HEENT: Denies blurred vision, vision changes, or eye pain. Denies hemoptysis CARDIOVASCULAR: Denies chest pain. Denies orthopnea. Denies PND. Denies palpitations RESPIRATORY: Denies shortness of breath. GASTROINTESTINAL: Denies abdominal pain. Denies nausea or vomiting. HEMATOLOGIC: Denies bleeding disorders. GENITOURINARY: Denies any blood in urine. SKIN: Denies pruitis. Denies rash. PHYSICAL EXAM: VITAL SIGNS: Reviewed. GENERAL: Well-developed in no acute distress. HEENT: Head is normocephalic. Pupils are equal, round. Sclerae anicteric. Mucous membranes of the mouth are moist. Neck supple. No JVD or thyromegaly LUNGS: Respirations even and unlabored. Lungs essentially clear to auscultation bilaterally. HEART: Regular rate and rhythm. S1 and S2 heard. ABDOMEN: Soft. Nondistended. Nontender. EXTREMITIES: Normal range of motion. No clubbing or cyanosis. Peripheral pulses intact. No lower extremity edema NEUROLOGIC: Awake and alert. Oriented x 3. ASSESSMENT: Chest pain, troponin negative 3 Coronary artery disease with previous stenting, approximately 2019, details unknown Hypertension Hyperlipidemia with statin intolerance Former nicotine dependence Strong family history of coronary artery disease PLAN: An acute coronary event has been ruled out Resume home cardiac medications Obtain 2-D echo to assess cardiac structure and function Patient will undergo Lexiscan stress test today If negative, she may be discharged home today from a cardiac standpoint Nurse practitioner note has been reviewed by physician. Signing provider agrees with the documented findings, assessment, and plan of care. Past Medical History Past Medical History: Fibromyalgia, Hyperlipidemia, Skin Disorder Additional Past Medical History / Comment(s): recent hospital admission for dehydration-had diarrhea for approx 1 week, rash,hx UTI , bronchitis, kidney stones,steroid Mar 2017 History of Any Multi-Drug Resistant Organisms: None Reported Past Surgical History: Section, Uterine Ablation Additional Past Surgical History / Comment(s): sinus surgery x 3,lithotripsy Past Anesthesia/Blood Transfusion Reactions: No Reported Reaction Past Psychological History: Depression Smoking Status: Former smoker Past Alcohol Use History: None Reported Additional Past Alcohol Use History / Comment(s): started started smoking at age 46,<1ppd Past Drug Use History: None Reported - Past Family History Sister(s) Family Medical History: Cancer Additional Family Medical History / Comment(s): lung cancer at age 31 Medications and Allergies Home Medications Medication Instructions Recorded Confirmed Type Pregabalin [Lyrica] 300 mg PO BID 02/08/14 12/11/22 History traMADol HCL [Ultram] 50 mg PO TID PRN 02/08/14 12/11/22 History Aspirin EC [Ecotrin Low Dose] 81 mg PO DAILY 12/11/22 12/11/22 History lisinopriL [Zestril] 20 mg PO DAILY 12/11/22 12/11/22 History Allergies Allergy/AdvReac Type Severity Reaction Status Date / Time No Known Allergies Allergy Verified 12/11/22 14:45 Physical Exam Vitals: Vital Signs Temp Pulse Pulse Resp BP BP Pulse Ox 12/12/22 07:00 97.5 F L 75 18 126/80 99 12/12/22 02:34 98.4 F 64 15 129/74 96 12/11/22 19:33 97.7 F 63 15 139/83 97 12/11/22 18:06 65 17 146/91 99 12/11/22 17:48 67 16 149/96 100 12/11/22 16:18 98.2 F 63 18 140/84 99 12/11/22 14:05 98.6 F 80 18 146/89 99 Intake and Output 12/11/22 12/12/22 12/12/22 22:59 06:59 14:59 Other: # Voids 1 1 Weight 98.883 kg Results 12/11/22 15:33 12/11/22 16:03 Cardiac Enzymes 12/11/22 12/11/22 12/11/22 Range/Units 15:16 15:16 16:03 AST 48 H 30 (14-36) U/L Troponin I 0.017 (0.000-0.034) ng/mL 12/11/22 12/11/22 12/11/22 Range/Units 16:03 19:33 21:32 AST (14-36) U/L Troponin I <0.012 <0.012 <0.012 (0.000-0.034) ng/mL Coagulation 12/11/22 Range/Units 15:58 PT 10.0 (9.0-12.0) sec APTT 22.5 (22.0-30.0) sec Lipids 12/11/22 Range/Units 16:03 Triglycerides 130.00 (0.00-149.00) mg/dL Cholesterol 255.00 H (0.00-200.00) mg/dL HDL Cholesterol 64.50 H (40.00-60.00) mg/dL Cholesterol/HDL Ratio 3.95 Ratio CBC 12/11/22 Range/Units 15:33 WBC 6.1 (3.8-10.6) k/uL RBC 4.94 (3.80-5.40) m/uL Hgb 14.6 (11.4-16.0) gm/dL Hct 44.8 (34.0-46.0) % Plt Count 288 (150-450) k/uL Comprehensive Metabolic Panel 12/11/22 12/11/22 Range/Units 15:16 16:03 Sodium 136 L 140 (137-145) mmol/L Potassium 6.0 H 4.1 (3.5-5.1) mmol/L Chloride 109 H 110 H (98-107) mmol/L Carbon Dioxide 24 22 (22-30) mmol/L BUN 10 10 (7-17) mg/dL Creatinine 0.86 0.88 (0.52-1.04) mg/dL Glucose 94 93 (74-99) mg/dL Calcium 9.1 10.0 (8.4-10.2) mg/dL AST 48 H 30 (14-36) U/L ALT 26 26 (4-34) U/L Alkaline Phosphatase 78 110 (38-126) U/L Total Protein 7.3 7.6 (6.3-8.2) g/dL Albumin 4.2 4.5 (3.5-5.0) g/dL Current Medications Generic Name Dose Route Start Last Admin Trade Name Freq PRN Reason Stop Dose Admin Acetaminophen 650 mg 12/11/22 21:20 12/11/22 21:34 Acetaminophen Tab 325 Mg Tab PO 650 mg Q6HR PRN Administration Fever and/ or Pain Aminophylline 100 mg 12/12/22 08:01 Aminophylline 500 Mg/20 Ml Vial IV 12/12/22 12:01 ONCE PRN Patient Response Aspirin 81 mg 12/12/22 09:00 12/12/22 08:02 Aspirin 81 Mg PO 81 mg DAILY YOSI Administration Caffeine Citrate 60 mg 12/12/22 08:01 Caffeine Citrate 60 Mg/3 Ml Vial IV 12/12/22 12:01 ONCE PRN Patient Response Lisinopril 20 mg 12/12/22 09:00 12/12/22 08:02 Lisinopril 20 Mg Tab PO 20 mg DAILY YOSI Administration Nitroglycerin 0.4 mg 12/11/22 18:55 Nitroglycerin Sl Tabs 0.4 Mg Tab SUBLINGUAL Q5M PRN Chest Pain Regadenoson 0.4 mg 12/12/22 08:01 Regadenoson 0.4 Mg/5 Ml Syringe IV 12/12/22 12:01 ONCE PRN Per Protocol Intake and Output 12/11/22 12/12/22 12/12/22 22:59 06:59 14:59 Other: # Voids 1 1 Weight 98.883 kg 12/11/22 15:33 12/11/22 16:03
[2022-12-12] MEDS ORDERED: PREGABALIN 100 MG CAP PO SCH (09:45)
[2022-12-12] MEDS ORDERED: NON FORMULARY DRUG (Aspirin Ec 81 MG Tablet) PO SCH (09:45)
[2022-12-12] MEDS ORDERED: PANTOPRAZOLE 40 MG TABLET PO SCH (09:45)
--- NOTE | 2022-12-12 11:52 | NM ---
EXAMINATION TYPE: NM stress lexiscan cardiolite DATE OF EXAM: 12/12/2022 COMPARISON: NONE CLINICAL INDICATION: Female, 57 years old with history of CP; TECHNIQUE: After the intravenous administration of 9.6 mCi Tc 99m Sestamibi - Cardiolite resting SPE CT images acquired 45 minutes post injection. The patient received 0.4mg Lexiscan, 24.8 mCi Tc 99m Sestamibi - Stress images obtained [address] injection FINDINGS: Review of stress and rest SPECT images demonstrates predominantly fixed defect apical lateral wall. N o stress-induced ischemia certainty.. Gated analysis shows normal wall motion with an estimated left ventricular ejection fraction of 53 %. IMPRESSION: No scintigraphic evidence for reversible ischemia.
--- NOTE | 2022-12-12 12:55 | CA ---
Lexiscan Nuclear Stress Test Report Name: Ashley Venegas Exam Date: 12/12/2022 10:13 Exam Location: [facility] Ht (in): 69 Wt (lb): 218 BSA: 2.14 Ordering Phys: Carolyn Marcelo Referring Phys: STEPHON, Technologist: Ernesto Miramontes Age: 57 Gender: F : 1965 Procedure CPT: Indications: Reflex order-Stress test ICD-10 Codes: Patient History: CHEST PAIN, DIFFICULTY IN BREATHING, NUMBNESS IN FACE/NECK, ELEVATED CHOLESTEROL LEVELS, FAMILY HX OF HEART DISEASE, PRIOR NV, PRIOR CARDIAC CATH X 3, PRIOR STENT, Medications: Meds past 24 hrs: Pretest Chest Pain: STRESS TEST Lexiscan Protocol Exercise Duration (min:sec): 01:[address] Depressions (mm): Angina Score: Sanchez Score: Resting HR (bpm): 64 Peak HR (bpm): 97 Resting BP (mmHg): 151 / 88 Peak BP (mmHg): 151 / 92 MPHR: 161 Target HR: 137 % MPHR: 60 METS: 1.0 Total Dose: Peak Dose: Atropine: Double Product: 06751 BP Response: Stress Termination: INFUSION COMPLETE Stress Symptoms: NO SYMPTOMS Stress Summary: ECG ANALYSIS Resting ECG: Sinus rhythm. Normal conduction. No arrhythmias. Non-specific ST-T wave changes. Stress ECG: No ECG changes from baseline with Lexiscan infusion. CONCLUSIONS No ECG evidence of ischemia with Lexiscan infusion. Nuclear test results to follow. Dr. Aleksandra Loomis MD (Electronically Signed) Final Date: 12 December 2022 12:55
[2022-12-12] MEDS: ACETAMINOPHEN TAB 325 MG TAB PO PRN (12:56)
--- NOTE | 2022-12-12 13:06 | CA ---
Transthoracic Echo Report Name: Ashley Venegas Age: 57 Gender: F : 1965 Exam Date: 12/12/2022 09:16 Exam Location: [facility] Ht (in): 69 Wt (lb): 218 Ordering Physician: Carolyn Marcelo Attending/Referring Phys: [id number], [employer] Sales Representative Aniyah Torres [facility] Procedure CPT: Indications: LV function, CP Cardiac Hx: Technical Quality: Fair Contrast 1: Total Dose (mL): Contrast 2: Total Dose (mL): MEASUREMENTS (Male / Female) Normal Values 2D ECHO LV Diastolic Diameter PLAX 4.4 cm 4.2 - 5.9 / 3.9 - 5.3 cm LV Systolic Diameter PLAX 3.2 cm IVS Diastolic Thickness 0.8 cm 0.6 - 1.0 / 0.6 - 0.9 cm LVPW Diastolic Thickness 0.9 cm 0.6 - 1.0 / 0.6 - 0.9 cm LV Relative Wall Thickness 0.4 LVOT Diameter 2.0 cm Ascending Aorta Diameter 3.3 cm M-MODE Aortic Root Diameter MM 3.4 cm LA Systolic Diameter MM 3.8 cm LA Ao Ratio MM 1.1 AV Cusp Separation MM 2.0 cm DOPPLER AV Peak Velocity 149.6 cm/s AV Peak Gradient 9.0 mmHg AV Mean Velocity 103.1 cm/s AV Mean Gradient 4.7 mmHg AV Velocity Time Integral 31.9 cm LVOT Peak Velocity 96.9 cm/s LVOT Peak Gradient 3.8 mmHg LVOT Velocity Time Integral 24.2 cm LVOT Stroke Volume 78.6 cm??? LVOT Stroke Volume Index 36.7 ml/m??? LVOT Cardiac Index 2330.8 cm???/min???m??? AV Area Cont Eq vti 2.5 cm??? AV Area Cont Eq pk 2.1 cm??? Mitral E Point Velocity 64.3 cm/s Mitral A Point Velocity 99.3 cm/s Mitral E to A Ratio 0.6 MV Deceleration Time 250.8 ms LV E' Lateral Velocity 8.8 cm/s Mitral E to LV E' Lateral Ratio 7.3 LV E' Septal Velocity 9.3 cm/s Mitral E to LV E' Septal Ratio 6.9 Right Atrial Pressure 3.0 mmHg FINDINGS Left Ventricle Left ventricular wall thickness normal. Left ventricular cavity size normal. Low normal left ventricular systolic function with no obvious regional wall motion abnormalities. Left ventricular ejection fraction is estimated at 50- 55%. Right Ventricle Normal right ventricular size. Right Atrium Normal right atrial size. Left Atrium Normal left atrial size. Mitral Valve Structurally normal mitral valve. Mild mitral regurgitation. Aortic Valve Trileaflet aortic valve. No aortic regurgitation. Tricuspid Valve Structurally normal tricuspid valve. No tricuspid regurgitation. Pulmonic Valve Pulmonic valve not well visualized. Pericardium No pericardial effusion. Echo free space anterior to the right ventricle likely represents a fat pad. Aorta Normal size aortic root and proximal ascending aorta. CONCLUSIONS 1. Normal left ventricle size and systolic function 2. Mild mitral regurgitation Previewed by: Dr. Aleksandra Loomis MD (Electronically Signed) Final Date: 12 December 2022 13:05
[2022-12-12] MEDS ORDERED: ATORVASTATIN 40 MG TAB PO SCH (21:00)
--- NOTE | 2022-12-12 21:15 | P.HPIM ---
History of Present Illness H&P Date: 12/12/22 This is a 57 year old female with medical history of coronary artery disease, hypertension, hyperlipidemia, COPD, and per patient black mold exposure. Patient presents with chest pain and pressure over the last few days however has been progressive over the last year. No dizziness or lightheadedness, no syncope. No palpitations. No fever or chills. States she has been seeing Dr. Arias in the office and also was recently evaluated by Dr Rosa and underwent pulmonary function testing and told her lungs were fine. She has been short of breath to the point she is unable to walk up the flight of stairs to her apartment and has been unable to walk her dog. Patient reports that she had chest pain on the left side and it was radiating into the neck and back and felt similar to when she had her prior stent placed. Blood count panel is unremarkable, renal function normal, troponin has been negative x 3. Had elevated D-Dimer at 0.[address] angiography which reveals no evidence of pulmonary embolism, mild cardiomegaly, small hiatal hernia. Chest xray is negative for acute fin dings, there is evidence of COPD. EKG showing normal sinus rhythm heart rate of 65. Patient admitted for cardiac evaluation. Echocardiogram showing normal LV size and systolic function. Mild MR. REVIEW OF SYSTEMS: CONSTITUTIONAL: No fever, no malaise, no fatigue. HEENT: No recent visual problems or hearing problems. Denied any sore throat. CARDIOVASCULAR: Reports chest pain, orthopnea, PND, no palpitations, no syncope. PULMONARY: No shortness of breath, no cough, no hemoptysis. GASTROINTESTINAL: No diarrhea, no nausea, no vomiting, no abdominal pain. NEUROLOGICAL: No headaches, no weakness, no numbness. HEMATOLOGICAL: Denies any bleeding or petechiae. GENITOURINARY: Denies any burning micturition, frequency, or urgency. MUSCULOSKELETAL/RHEUMATOLOGICAL: Denies any joint pain, swelling, or any muscle pain. ENDOCRINE: Denies any polyuria or polydipsia. The rest of the 14-point review of systems is negative. PHYSICAL EXAMINATION: GENERAL: The patient is alert and oriented x3, not in any acute distress. Well developed, well nourished. HEENT: Pupils are round and equally reacting to light. EOMI. No scleral icterus. No conjunctival pallor. Normocephalic, atraumatic. No pharyngeal erythema. No thyromegaly. CARDIOVASCULAR: S1 and S2 present. No murmurs, rubs, or gallops. PULMONARY: Chest is clear to auscultation, no wheezing or crackles. ABDOMEN: Soft, nontender, nondistended, normoactive bowel sounds. No palpable organomegaly. MUSCULOSKELETAL: No joint swelling or deformity. EXTREMITIES: No cyanosis, clubbing, or pedal edema. NEUROLOGICAL: Gross neurological examination did not reveal any focal deficits. SKIN: No rashes. Assessment Acute chest pain, troponin negative x 3 Exertional dyspnea with elevated D-Dimer, Chest CTA negative for pulmonary embolism Hx of COPD with no acute exacerbation Coronary artery disease with prior cardiac stenting Hypertension Hx of hyperlipidemia not on a statin Former nicotine dependence Hx fibromyalgia GI prophylaxis Plan Cardiology consultation Patient scheduled to undergo lexiscan stress test today If negative patient can be discharged home to follow up with cardiology and PCP in the office for further testing The impression and plan of care has been dictated by Alana Osman, Nurse Practitioner as directed. Dr. Iveth MD I have performed a history and physical examination and medical decision making of this patient, discussed the same with the dictator, and agree with the dictators assessment and plan as written, documented as a scribe. Based on total visit time, I have performed more than 50% of this visit. Past Medical History Past Medical History: Fibromyalgia, Hyperlipidemia, Skin Disorder Additional Past Medical History / Comment(s): recent hospital admission for dehydration-had diarrhea for approx 1 week, rash,hx UTI , bronchitis, kidney stones,steroid Mar 2017 History of Any Multi-Drug Resistant Organisms: None Reported Past Surgical History: Section, Uterine Ablation Additional Past Surgical History / Comment(s): sinus surgery x 3,lithotripsy Past Anesthesia/Blood Transfusion Reactions: No Reported Reaction Past Psychological History: Depression Smoking Status: Former smoker Past Alcohol Use History: None Reported Additional Past Alcohol Use History / Comment(s): started started smoking at age 46,<1ppd Past Drug Use History: None Reported - Past Family History Sister(s) Family Medical History: Cancer Additional Family Medical History / Comment(s): lung cancer at age 31 Medications and Allergies Home Medications Medication Instructions Recorded Confirmed Type Pregabalin [Lyrica] 300 mg PO BID 02/08/14 12/11/22 History traMADol HCL [Ultram] 50 mg PO TID PRN 02/08/14 12/11/22 History Aspirin EC [Ecotrin Low Dose] 81 mg PO DAILY 12/11/22 12/11/22 History lisinopriL [Zestril] 20 mg PO DAILY 12/11/22 12/11/22 History Nitroglycerin Sl Tabs [Nitrostat] 0.4 mg SUBLINGUAL Q5M PRN #20 tab 12/12/22 Rx Allergies Allergy/AdvReac Type Severity Reaction Status Date / Time No Known Allergies Allergy Verified 12/11/22 14:45 Physical Exam Vitals: Vital Signs Temp Pulse Pulse Resp BP BP Pulse Ox 12/12/22 07:00 97.5 F L 75 18 126/80 99 12/12/22 02:34 98.4 F 64 15 129/74 96 12/11/22 19:33 97.7 F 63 15 139/83 97 12/11/22 18:06 65 17 146/91 99 12/11/22 17:48 67 16 149/96 100 12/11/22 16:18 98.2 F 63 18 140/84 99 12/11/22 14:05 98.6 F 80 18 146/89 99 Intake and Output 12/11/22 12/12/22 12/12/22 22:59 06:59 14:59 Other: # Voids 1 1 Weight 98.883 kg Results CBC & Chem 7: 12/11/22 15:33 12/11/22 16:03 Labs: Abnormal Lab Results - Last 24 Hours (Table) 12/11/22 12/11/22 12/11/22 Range/Units 15:16 15:58 16:03 D-Dimer 0.88 H (<0.60) mg/L FEU Sodium 136 L (137-145) mmol/L Potassium 6.0 H (3.5-5.1) mmol/L Chloride 109 H 110 H (98-107) mmol/L AST 48 H (14-36) U/L Cholesterol (0.00-200.00) mg/dL LDL Cholesterol, Calc (0.0-131.0) mg/dL HDL Cholesterol (40.00-60.00) mg/dL 12/11/22 Range/Units 16:03 D-Dimer (<0.60) mg/L FEU Sodium (137-145) mmol/L Potassium (3.5-5.1) mmol/L Chloride (98-107) mmol/L AST (14-36) U/L Cholesterol 255.00 H (0.00-200.00) mg/dL LDL Cholesterol, Calc 164.5 H (0.0-131.0) mg/dL HDL Cholesterol 64.50 H (40.00-60.00) mg/dL Thrombosis Risk Factor Assmnt - Choose All That Apply Any of the Below Risk Factors Present?: Yes Each Factor Represents 1 point: Abnormal pulmonary function (COPD), Age 41-60 years Other Risk Factors: No Other congenital or acquired thrombophilia - If yes, enter type in comment: No Thrombosis Risk Factor Assessment Total Risk Factor Score: 2 Thrombosis Risk Factor Assessment Level: Low Risk Assessment and Plan Time with Patient: Less than 30
--- NOTE | 2022-12-12 21:19 | P.DS ---
Providers Date of admission: 12/11/22 18:57 Attending physician: Kirsten Crum Consults: 12/11/22 18:55 Consult Physician Urgent Consulting Provider: [facility] Consult Reason/Comments: Chest pain Do you want consulting provider notified?: Yes Primary care physician: Luke Reed Hospital Course: Final Diagnosis Acute chest pain, troponin negative x 3 Acute coronary syndrome ruled out Exertional dyspnea with elevated D-Dimer, Chest CTA negative for pulmonary embolism Hx of COPD with no acute exacerbation Coronary artery disease with prior cardiac stenting Hypertension Hx of hyperlipidemia not on a statin Former nicotine dependence Hx fibromyalgia Discharge Disposition Patient is stable for discharge home to follow up with PCP and cardiology in the office. Patient had negative lexiscan stress test. Continue same home medications. Patient left prior to being given discharge instructions, patient refused them. Hospital Course This is a 57 year old female with medical history of coronary artery disease, hypertension, hyperlipidemia, COPD, and per patient black mold exposure. Patient presents with chest pain and pressure over the last few days however has been progressive over the last year. No dizziness or lightheadedness, no syncope. No palpitations. No fever or chills. States she has been seeing Dr. Arias in the office and also was recently evaluated by Dr Rosa and underwent pulmonary function testing and told her lungs were fine. She has been short of breath to the point she is unable to walk up the flight of stairs to her apartment and has been unable to walk her dog. Patient reports that she had chest pain on the left side and it was radiating into the neck and back and felt similar to when she had her prior stent placed. Blood count panel is unremarkable, renal function normal, troponin has been negative x 3. Had elevated D-Dimer at 0.[address] angiography which reveals no evidence of pulmonary embolism, mild cardiomegaly, small hiatal hernia. Chest xray is negative for acute findings, there is evidence of COPD. EKG showing normal sinus rhythm heart rate of 65. Patient admitted for cardiac evaluation. Echocardiogram showing normal LV size and systolic function. Mild MR. Patient underwent lexiscan stress test revealing no evidence for reversible ischemia. Lipid panel showing cholesterol 255, LDL 164, HDL 64.5, Patient currently up sitting on the edge of the bed. Lungs are clear, S1 S2 auscultated. Hemodynamically patient is stable and will be discharged home. Please see medication reconciliation for a list of current medication. Thank you for allowing us to participate in the care of this patient. The impression and plan of care has been dictated by Alana Osman, Nurse Practitioner as directed. Dr. Iveth MD I have performed a history and physical examination and medical decision making of this patient, discussed the same with the dictator, and agree with the dictators assessment and plan as written, documented as a scribe. Based on total visit time, I have performed more than 50% of this visit. Patient Condition at Discharge: Stable Plan - Discharge Summary Discharge Rx Participant: No New Discharge Prescriptions: New Nitroglycerin Sl Tabs [Nitrostat] 0.4 mg SUBLINGUAL Q5M PRN #20 tab PRN Reason: Chest Pain Continue traMADol HCL [Ultram] 50 mg PO TID PRN PRN Reason: Pain Pregabalin [Lyrica] 300 mg PO BID Aspirin EC [Ecotrin Low Dose] 81 mg PO DAILY lisinopriL [Zestril] 20 mg PO DAILY Discharge Medication List Pregabalin [Lyrica] 300 mg PO BID 02/08/14 [History] traMADol HCL [Ultram] 50 mg PO TID PRN 02/08/14 [History] Aspirin EC [Ecotrin Low Dose] 81 mg PO DAILY 12/11/22 [History] lisinopriL [Zestril] 20 mg PO DAILY 12/11/22 [History] Nitroglycerin Sl Tabs [Nitrostat] 0.4 mg SUBLINGUAL Q5M PRN #20 tab 12/12/22 [Rx] Follow up Appointment(s)/Referral(s): Luke Reed [Primary Care Provider] - 1-2 days Adrian Rosa MD [STAFF PHYSICIAN] - 1 Week Aleksandra Loomis MD [STAFF PHYSICIAN] - 1 Week Patient Instructions/Handouts: Chest Pain (DC) Activity/Diet/Wound Care/Special Instructions: Follow up with your primary provider Dr. Reed. Follow up with Dr. Rosa and follow up with Dr. Loomis. Discharge Disposition: HOME SELF-CARE
== END 2022-12-12 13:46 | disposition home or self-care (01) ==
LOC: EC 13:56 → 6NMEDSUR 18:57
PROVIDERS: ADMIT Hospitalist; ATTEND Hospitalist
DX: R07.89 Other chest pain (principal); R06.09 Other forms of dyspnea; R77.8 Other specified abnormalities of plasma proteins; J44.9 Chronic obstructive pulmonary disease, unspecified; I25.10 Atherosclerotic heart disease of native coronary artery without angina pectoris; I10 Essential (primary) hypertension; M79.7 Fibromyalgia; E78.5 Hyperlipidemia, unspecified; F32.A Depression, unspecified; Z95.5 Presence of coronary angioplasty implant and graft; Z87.891 Personal history of nicotine dependence; Z79.899 Other long term (current) drug therapy; Z79.82 Long term (current) use of aspirin; Z82.49 Family history of ischemic heart disease and other diseases of the circulatory system
CPT/HCPCS: 96372; 99285; 36415; 93005; 93017; 93306; 85379; 80061; 80053; 83735; 84484; 85025; 85610; 85730; 71046; 71275; 78452; G0378 ×3; A9500; J2785; Q9967

== ENCOUNTER → 2023-07-02 | Outpatient (CLI) | payer MEDICARE, OTHER ==
--- NOTE | 2023-07-03 13:35 | CT ---
EXAMINATION TYPE: CT abdomen pelvis wo con DATE OF EXAM: 07/02/2023 COMPARISON: 01/28/2019 INDICATION: left flank pain DLP: 914.5 mGycm, Automated exposure control for dose reduction was used. CONTRAST: 0 mL of Isovue 300. Study performed without Oral Contrast TECHNIQUE: Axial images were obtained from above the diaphragm to the pubic rami in the axial plane a t 5 mm thick sections. Reconstructed images are reviewed on the computer in the coronal plane. FINDINGS: Limited CT sections are obtained the lung bases. The lung bases are clear. CT ABDOMEN: Liver: There is a 6.6 cm cyst at the inferior right tip of the liver present previously Spleen: Normal Pancreas: Normal Adrenal glands: The adrenal glands are normal. Gallbladder: There is likely absent Kidneys: No masses are evident. No hydronephrosis is present. No cysts are present. Multiple nonob structing renal stones are present bilateral kidneys. The largest measures 0.5 cm in the mid lateral left kidney, largest on the right measures 0.3 cm at the lateral mid right kidney. Aorta: Normal Inferior vena cava: Normal. CT PELVIS: Loops of bowel within the abdomen and pelvis are normal. Study is without oral contrast limiting evaluation. Appendix: Normal as visualized. Urinary bladder: Normal. Genitourinary structures: Uterus is normal. Adnexa are unremarkable. Osseous structures: No suspicious lytic or sclerotic lesions. Facet changes are in the lumbar spine IMPRESSION: 1. Hepatic cyst. 2. Nonobstructing bilateral renal stones
== END | disposition home or self-care (01) ==
LOC: RADCTMAIN 08:50
PROVIDERS: ATTEND Family Medicine
DX: K76.89 Other specified diseases of liver (principal); N20.0 Calculus of kidney
CPT/HCPCS: 74176

== ENCOUNTER → 2023-08-19 | Outpatient (CLI) | payer MEDICARE, OTHER ==
[2023-08-19 18:30] LABS: Basophils # (A) 0.08 X 10*3/uL (0.00-0.10); Basophils % (A) 1.4 %; Eosinophils # (A) 0.24 X 10*3/uL (0.04-0.35); Eosinophils % (A) 4.3 %; HGB 13.6 g/dL (12.0-15.0); Lymphocytes # (A) 1.79 X 10*3/uL (0.90-5.00); MCH 28.8 pg (27.0-32.0); MCHC 31.6 g/dL (32.0-37.0); MCV 91.1 FL (80.0-97.0); Mean Platelet Volume 11.3 FL (9.5-12.2); Monocytes # (A) 0.43 X 10*3/uL (0.20-1.00); Monocytes % (A) 7.7 %; NRBC Per 100 WBC 0 X 10*3/uL (0.00-0.01); Neutrophils # (A) 3.05 X 10*3/uL (1.80-7.70); Neutrophils % (A) 54.4 %; Platelet Count 288 X 10*3/uL (140-440); RBC 4.72 X 10*6/uL (4.10-5.20); RDW 14.8 % (11.5-14.5)
[2023-08-19 19:41] LABS: Appearance,Urine Clear (Clear); Bilirubin,Urine Negative (Negative); Blood,Urine Negative (Negative); Color,Urine Yellow (Yellow); Ketones,Urine Negative (Negative); Nitrite,Urine Negative (Negative); PH, Urine 5.5; Urobilinogen,Urine 0.2 E.U./DL
[2023-08-19 20:09] LABS: Blood Urea Nitrogen 13.5 mg/dL (9.0-27.0); Carbon Dioxide 24.3 mmol/L (21.6-31.8); Chloride 106 mmol/L (96-109); Glucose 87 mg/dL (70-110); Potassium 4.3 mmol/L (3.5-5.5); Sodium 142 mmol/L (135-145)
== END | disposition home or self-care (01) ==
LOC: LABPAT 14:02
PROVIDERS: ATTEND Orthopaedic Surgery Hand Surgery
DX: Z01.812 Encounter for preprocedural laboratory examination (principal); N20.0 Calculus of kidney
CPT/HCPCS: 80048; 81003; 85025; 87086

== ENCOUNTER 2023-08-25 08:46 | Day surgery (SDC) | payer MEDICARE, OTHER ==
--- NOTE | 2023-08-25 08:18 | P.HPIHPCON ---
History of Present Illness H&P Date: 08/25/23 Chief Complaint: Left renal stones This is a 58-year-old female with history of 2 right-sided renal stone, she is having symptomatic left flank pain. Discussed with her the stones are nonobstructive. Discussed option of left sided stone removal. Option of ESWL and ureteroscopy with holmium laser were discussed in details. She agreed to proceed with left-sided ureteroscopy with holmium laser. aware of the risk which includes but not limited to bleeding, infection, injury to the ureter. Risk of anesthesia was also discussed. Discussed also given that the stones are nonobstructive potentially she might have persistent pain even with stone removals. She understood all the risk and agreed to proceed Consent for Procedure: I have explained the operation/procedure to the patient, including the risks, benefits, side effects, alternative therapies (including not receiving the proposed treatment or service), the likelihood of the patient achieving his/her goals, and potential recuperation problems for the procedure/sedation/analgesia, as well as any blood products, if indicated. I also explained to the patient the risks, benefits and side effects of the alternatives, as well as the risks related to not receiving the proposed procedure, care, treatment, or services. Past Medical History Past Medical History: Fibromyalgia, Hyperlipidemia, Hypertension, Myocardial Infarction ([place]), Skin Disorder, Sleep Apnea/CPAP/BIPAP Additional Past Medical History / Comment(s): ,hx UTI , hx bronchitis,hx kidney stones,silent [place] 2019, not on cholesterol meds. ? irregular heart rhythm r/t fatigue has loop recorder. exposure to black mold during Covid- resp issues. 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 < mobility to rt side. does not wear cpap. Last Myocardial Infarction Date:: 2019 History of Any Multi-Drug Resistant Organisms: None Reported Past Surgical History: Section, Heart Catheterization With Stent, Uterine Ablation Additional Past Surgical History / Comment(s): sinus surgery x 3,lithotripsy. loop recorder 03/2023 Past Anesthesia/Blood Transfusion Reactions: No Reported Reaction Date of Last Stent Placement:: 2019 Smoking Status: Former smoker - Past Family History Sister(s) Family Medical History: Cancer Additional Family Medical History / Comment(s): lung cancer at age 31 Father Family Medical History: Coronary Artery Disease (CAD), CVA/TIA Mother Family Medical History: Coronary Artery Disease (CAD) Brother(s) Family Medical History: Coronary Artery Disease (CAD), Pulmonary Embolus Additional Family Medical History / Comment(s): after open heart Medications and Allergies Home Medications Medication Instructions Recorded Confirmed Type Pregabalin [Lyrica] 300 mg PO BID 02/08/14 08/19/23 History traMADol HCL [Ultram] 50 mg PO TID PRN 02/08/14 08/19/23 History Aspirin EC [Ecotrin Low Dose] 81 mg PO DAILY 12/11/22 08/19/23 History lisinopriL [Zestril] 20 mg PO DAILY 12/11/22 08/19/23 History Nitroglycerin Sl Tabs [Nitrostat] 0.4 mg SUBLINGUAL Q5M PRN #20 tab 12/12/22 08/19/23 Rx Allergies Allergy/AdvReac Type Severity Reaction Status Date / Time No Known Allergies Allergy Verified 08/19/23 13:07 Surgical - Exam - General no distress, no pain - Eyes normal ocular movement, no pale - ENT normal nares, normal mucosa - Respiratory normal expansion, normal respiratory effort - Abdomen Abdomen: soft, non tender, no distended - Psychiatric oriented to time, oriented to person, oriented to place Assessment and Plan Assessment: OR for left-sided ureteroscopy, holmium laser lithotripsy, stone basketing and stent insertion
[~2023-08-25 08:46] MED LIST changes: +HYDROmorphone 0.5 MG/0.5 ML SYRINGE IVP PRN; +LIDOCAINE 1% (10MG/ML) FOR IV START INTRADERMA PRN; -Pre Op ABX Message 1 EACH MISC MISCELLANE ONE
[2023-08-25] MEDS: LACTATED RINGERS 1,000 ML IV SCH (09:17)
[2023-08-25] MEDS ORDERED: ONDANSETRON 4 MG/2 ML VIAL ONE (09:34)
[2023-08-25] MEDS: ONDANSETRON 4 MG/2 ML VIAL IVP ONE (09:45)
[2023-08-25] MEDS: DEXAMETHASONE SOD PHOSPHATE 4 MG/ML 1 ML VIAL IVP ONE (09:45)
[2023-08-25] MEDS ORDERED: PROPOFOL 10 MG/ML 20 ML VIAL IV ONE (09:56)
[2023-08-25] MEDS ORDERED: ePHEDrine 50 MG/ML 1 ML VIAL ONE (09:56)
[2023-08-25] MEDS ORDERED: LIDOCAINE 1% INJ 10MG/ML (20 ML MDV) ONE (09:56)
[2023-08-25] MEDS ORDERED: fentaNYL (PF) 50 MCG/ML 2 ML AMP ONE (09:56)
[2023-08-25] MEDS ORDERED: MIDAZOLAM 2 MG/2 ML VIAL ONE (09:56)
[2023-08-25] MEDS: SODIUM CHLORIDE 0.9% 50 ML with ceFAZolin 2,000 MG IV ONE (10:00)
[2023-08-25] MEDS: LACTATED RINGERS 1,000 ML IV ONE (10:44)
--- NOTE | 2023-08-25 10:50 | P.OP ---
Date of Procedure: 08/25/23 Preoperative Diagnosis: Left renal stones Postoperative Diagnosis: Same Procedure(s) Performed: Cystoscopy, left ureteroscopy, holmium laser lithotripsy, stone basketing and stent insertion Implants: 6 Nigerien by 26 cm stent in the left ureter left on a string Anesthesia: HAIR Surgeon: Florian Pepe Estimated Blood Loss (ml): 5 Pathology: other (left renal stone) Condition: stable Disposition: PACU Indications for Procedure: This is a 58-year-old female with history of 2 right-sided renal stone, she is having symptomatic left flank pain. Discussed with her the stones are nonobstructive. Discussed option of left sided stone removal. Option of ESWL and ureteroscopy with holmium laser were discussed in details. She agreed to proceed with left-sided ureteroscopy with holmium laser. aware of the risk which includes but not limited to bleeding, infection, injury to the ureter. Risk of anesthesia was also discussed. Discussed also given that the stones are nonobstructive potentially she might have persistent pain even with stone removals. She understood all the risk and agreed to proceed Operative Findings: 4 stones within the left kidney, 2 in the midpole and 2 additional ones in the lower pole Description of Procedure: Patient brought to the operating room, general anesthesia was induced. She was prepped and draped in sterile fashion and placed in dorsolithotomy position. Cystoscopy fitted with a 21 Nigerien sheath was inserted per urethra, cystoscopy was performed which showed no abnormality within the bladder attention was then carried to the left ureteral orifice, left ureter orifice was intubated with a sensor wire, wire was advanced into the left kidney under fluoroscopy. Next 1113 Nigerien access sheath was passed over the wire under fluoroscopy into the proximal ureter. Next a flexible ureteroscope was inserted through the access sheath, renoscopy was performed which revealed four stones within the kidney, 2 in the lower pole and 2 in the midpole. Using the holmium laser the stones were fragmented, sizable stone fragments were removed using the stone basket. Repeat renoscopy showed no sizable stone fragments or injury to the kidney. Pullback ureteroscopy was performed showed no injury to the ureter or any ureteral stones, as ureteroscope was withdrawn a sensor wire was advanced through. Next a ureteral stent was passed over the wire, the proximal curl was visualized on fluoroscopy and the distal curl was visualized using the cystoscope. The stent was left on a string and taped to the patient left thigh. Patient was awakened from anesthesia and taken to recovery in stable condition
--- NOTE | 2023-08-25 11:17 | FL ---
EXAMINATION TYPE: FL guidance operating room DATE OF EXAM: 08/25/2023 Comparison: None Clinical History: 58-year-old female Cysto for Left Kidney Stone Findings: Cysto for left kidney stone w/stent insertion 13 sec fluoro time .46222 Gycm2 DAP [address] Pepe
--- NOTE | 2023-08-25 11:37 | XR ---
EXAMINATION TYPE: XR KUB DATE OF EXAM: 08/25/2023 Comparison: CT 07/02/2023 Clinical History: 58-year-old female N20.0 renal stone Findings: Cholecystectomy clips. A few left-sided renal calculi measuring up to 4 mm. Mild to moderate stool bu rden. Nonobstructive bowel gas pattern. There are right renal shadow is largely obscured by bowel con tent. Impression: Nonobstructive left renal calculi measuring up to 4 mm. Right renal shadow largely obscured by bowel content.
[2023-08-25 11:47] VITALS: TEMP 96.8
[2023-08-25] MEDS ORDERED: KETOROLAC 15 MG/ML 1 ML VIAL ONE (12:04)
[2023-08-25] MEDS: KETOROLAC 15 MG/ML 1 ML VIAL IVP ONE (12:07)
[2023-08-25 12:44] VITALS: BP 136/84; PULSE 59; RESP 16
== END 2023-08-25 12:36 | disposition home or self-care (01) ==
LOC: OR 08:46
PROVIDERS: ATTEND Urology
DX: N20.0 Calculus of kidney (principal); I10 Essential (primary) hypertension; I25.2 Old myocardial infarction; M79.7 Fibromyalgia; E78.5 Hyperlipidemia, unspecified; G47.33 Obstructive sleep apnea (adult) (pediatric); Z87.891 Personal history of nicotine dependence; Z79.899 Other long term (current) drug therapy; Z86.16 Personal history of COVID-19
CPT/HCPCS: 52356; 82365; 74018; C2625; C1769; J2250; J1100; J2405; J0690; J2001; J3010; J1885; J2704

== ENCOUNTER → 2023-10-07 | Outpatient (CLI) | payer MEDICARE, OTHER ==
--- NOTE | 2023-10-07 15:37 | XR ---
EXAMINATION TYPE: XR chest 2V DATE OF EXAM: 10/07/2023 COMPARISON: 12/11/2022 INDICATION: COPD short of breath TECHNIQUE: Frontal and lateral views of the chest are obtained. FINDINGS: The heart size is normal. The pulmonary vasculature is normal. Minimal platelike atelectasis is along the right heart border. Lung thornton are clear. IMPRESSION: 1. Plate atelectasis right middle lobe.
== END | disposition home or self-care (01) ==
LOC: RADXRMAIN 14:03
PROVIDERS: ATTEND Family Medicine
DX: J44.1 Chronic obstructive pulmonary disease with (acute) exacerbation (principal); J98.11 Atelectasis
CPT/HCPCS: 71046

== ENCOUNTER → 2023-10-07 | Outpatient (CLI) | payer MEDICARE, OTHER ==
--- NOTE | 2023-10-07 15:33 | MR ---
EXAMINATION TYPE: MR lumbar spine wo con DATE OF EXAM: 10/07/2023 COMPARISON: HISTORY: Low back pain into both legs with numbness and weakness CONTRAST: 0 mL intravenous . TECHNIQUE: Multiplanar, multisequence images of the lumbar spine were acquired. 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 L5-S1: No significant disc bulge or disc herniation. No spinal canal stenosis. Facet hypertrophy is present. No lateral canal stenosis is present. There is severe bilateral foraminal stenosis. This ma y be greater on the left. L4-L5: Broad-based disc bulge is moderate anterior thecal sac flattening. Facet hypertrophy and ligam entum flavum laxity of posterior lateral thecal sac compression. Findings are contributing to spinal canal stenosis. Mild to moderate foraminal narrowing is present bilaterally. L3-L4: No significant disc bulge or disc herniation. No spinal canal stenosis. No foraminal stenosi s. . L2-L3: No significant disc bulge or disc herniation. No spinal canal stenosis. No foraminal stenosi s. . L1-L2: No significant disc bulge or disc herniation. No spinal canal stenosis. No foraminal stenosi s. . T12-L1: No significant disc bulge or disc herniation. No spinal canal stenosis. No foraminal stenos is. . IMPRESSION: 1. Disc bulging and ligamentum flavum laxity with facet hypertrophy L4-5 contributing to spinal canal stenosis. 2. Severe bilateral foraminal stenosis L5-S1. More moderate left and right foraminal narrowing presen t L4-5.
== END | disposition home or self-care (01) ==
LOC: RADMRIMAIN 13:52
PROVIDERS: ATTEND Psychiatry & Neurology Neurology
DX: M47.819 Spondylosis without myelopathy or radiculopathy, site unspecified (principal); M48.061 Spinal stenosis, lumbar region without neurogenic claudication; M51.36 Other intervertebral disc degeneration, lumbar region
CPT/HCPCS: 72148

== ENCOUNTER → 2023-10-07 | Outpatient (CLI) | payer MEDICARE, OTHER ==
[2023-10-08 03:31] LABS: BUN/Creat Ratio 18.44 Ratio (12.00-20.00); Blood Urea Nitrogen 16.6 mg/dL (9.0-27.0); Glucose 101 mg/dL (70-110)
[2023-10-08 03:32] LABS: ALT 17 U/L (8-44); AST 18 U/L (13-35); Albumin 4.1 g/dL (3.8-4.9); Albumin/Globulin Ratio 1.71 Ratio (1.60-3.17); Alkaline Phosphatase 108 U/L (41-126); Calcium 9.3 mg/dL (8.7-10.3); Carbon Dioxide 24.2 mmol/L (21.6-31.8); Chloride 109 mmol/L (96-109); Globulin 2.4 g/dL (1.6-3.3); Potassium 4.7 mmol/L (3.5-5.5); Sodium 143 mmol/L (135-145); Total Bilirubin 0.3 mg/dL (0.3-1.2); Total Protein 6.5 g/dL (6.2-8.2)
== END | disposition home or self-care (01) ==
LOC: LABWHC1 15:19
PROVIDERS: ATTEND Family Medicine
DX: J44.1 Chronic obstructive pulmonary disease with (acute) exacerbation (principal)
CPT/HCPCS: 36415; 80053

== ENCOUNTER → 2024-02-26 | Outpatient (CLI) | payer MEDICARE, OTHER ==
--- NOTE | 2024-02-29 09:03 | MM ---
Reason for Exam: Screening (asymptomatic). Last mammogram was performed 1 year(s) and 3 month(s) ago. Patient History: Menarche at age 10. First Full-Term at age 17. Postmenopausal. Risk Values: Flores 5 year model risk: 1.1%. NCI Lifetime model risk: 5.2%. Prior Study Comparison: 01/07/2018 Bilateral Screening Mammogram, [place]. 03/04/2019 Bilateral Screening Mammogram, [facility]. 11/27/2022 Bilateral MG 3D screening mammo w/cad, [facility]. Tissue Density: The breasts are almost entirely fatty. Findings: Analyzed By CAD. Right breast: There is no suspicious group of microcalcifications or new suspicious mass. Left breast: There is no suspicious group of microcalcifications or new suspicious mass. Loop recorder left breast. Overall Assessment: Negative, BI-RAD 1 Management: Screening Mammogram of both breasts in [address] [facility] will attempt to contact patient to return for supplemental views and ultrasound if indicated. Patient should continue monthly self-breast exams. A clinical breast exam by your physician is recommended on an annual basis. This exam should not preclude additional follow-up of suspicious palpable abnormalities. Note on Flores scores and lifetime risk: 1. A Flores score greater than 3% is considered moderate risk. If this is the case, consider specialist referral to assess eligibility for a risk reducing agent. 2. If overall lifetime risk for the development of breast cancer is 20% or higher, the patient may qualify for future screening with alternating mammogram and breast MRI. [facility], , 02/29/2024 9:00 AM. Electronically signed and approved by: Daquan Boucher DO
== END | disposition home or self-care (01) ==
LOC: RADMAMWWP 13:50
PROVIDERS: ATTEND Family Medicine
DX: Z12.31 Encounter for screening mammogram for malignant neoplasm of breast (principal); Z78.0 Asymptomatic menopausal state; R92.313 Mammographic fatty tissue density, bilateral breasts
CPT/HCPCS: 77063; 77067

== ENCOUNTER → 2024-04-11 | Outpatient (CLI) | payer MEDICARE, OTHER ==
--- NOTE | 2024-04-11 16:16 | XR ---
EXAMINATION TYPE: XR KUB DATE OF EXAM: 04/11/2024 2:24 PM COMPARISON: 08/25/2023 CLINICAL INDICATION: Female, 59 years old with history of N20.0 CALCULUS OF KIDNEY, TECHNIQUE: XR KUB view(s) obtained. FINDINGS: There is a normal bowel gas pattern. There is a 0.4 cm calcification at superior pole left kidney. Couple of 0.3 cm calcifications may be in the mid to upper pole right kidney. Psoas margins are normal. No organomegaly is present. IMPRESSION: 1. Bilateral renal stones discussed above [facility], , 04/11/2024 4:14 PM
== END | disposition home or self-care (01) ==
LOC: RADXRMAIN 14:09
PROVIDERS: ATTEND Urology
DX: N20.0 Calculus of kidney (principal)
CPT/HCPCS: 74018

== ENCOUNTER → 2024-04-15 | Outpatient (CLI) | payer MEDICARE, OTHER ==
[2024-04-15 19:15] LABS: Basophils # (A) 0.11 X 10*3/uL (0.00-0.10); Basophils % (A) 1.7 %; Eosinophils # (A) 0.33 X 10*3/uL (0.04-0.35); HCT 43.6 % (37.2-46.3); HGB 14.2 g/dL (12.0-15.0); Lymphocytes # (A) 1.83 X 10*3/uL (0.90-5.00); Lymphocytes % (A) 27.5 %; MCH 29.4 pg (27.0-32.0); MCHC 32.6 g/dL (32.0-37.0); MCV 90.3 FL (80.0-97.0); Mean Platelet Volume 12.4 FL (9.5-12.2); Monocytes # (A) 0.52 X 10*3/uL (0.20-1.00); Monocytes % (A) 7.8 %; NRBC Per 100 WBC 0 X 10*3/uL (0.00-0.01); Neutrophils # (A) 3.84 X 10*3/uL (1.80-7.70); Neutrophils % (A) 57.5 %; Platelet Count 345 X 10*3/uL (140-440); RBC 4.83 X 10*6/uL (4.10-5.20); RDW 14.6 % (11.5-14.5); WBC 6.66 X 10*3/uL (4.50-10.00)
[2024-04-15 19:40] LABS: BUN/Creat Ratio 17.78 Ratio (12.00-20.00); Carbon Dioxide 26.4 mmol/L (21.6-31.8); Chloride 108 mmol/L (96-109); Glucose 104 mg/dL (70-110); Potassium 4.6 mmol/L (3.5-5.5); Sodium 144 mmol/L (135-145)
== END | disposition home or self-care (01) ==
LOC: LABPAT 14:19
PROVIDERS: ATTEND Urology
DX: Z01.812 Encounter for preprocedural laboratory examination (principal); N20.0 Calculus of kidney
CPT/HCPCS: 80048; 85025

== ENCOUNTER 2024-04-19 08:44 | Day surgery (SDC) | payer MEDICARE, OTHER ==
--- NOTE | 2024-04-19 09:23 | P.HPIHPCON ---
History of Present Illness H&P Date: 04/19/24 Chief Complaint: Bilateral renal stone This is a 59-year-old female history of recurrent kidney stones. She has been having symptomatic bilateral flank pain. KUB showed evidence of a 4 mm left- sided renal pelvic stone, and a 3 mm right-sided upper pole stone. She is sympt omatic from both stones. Discussed with her the potential that her symptoms are not related to the stone, but at this time she would like to proceed with bilateral ureteroscopy to address it as she indicated the pain is similar to her renal colic. Discussed option of bilateral ureteroscopy, laser, aware of the risk which includes but not limited to bleeding, infection, injury to the ureter Consent for Procedure: I have explained the operation/procedure to the patient, including the risks, benefits, side effects, alternative therapies (including not receiving the pro posed treatment or service), the likelihood of the patient achieving his/her goals, and potential recuperation problems for the procedure/sedation/analgesia, as well as any blood products, if indicated. I also explained to the patient the risks, benefits and side effects of the alternatives, as well as the risks related to not receiving the proposed procedure, care, treatment, or services. Past Medical History Past Medical History: COPD, Fibromyalgia, Hyperlipidemia, Hypertension, Myocardial Infarction ([place]), Sleep Apnea/CPAP/BIPAP Additional Past Medical History / Comment(s): ,hx UTI , hx bronchitis,hx kidney stones,silent [place] 2019, not on cholesterol meds. ? irregular heart rhythm has loop recorder. exposure to black mold during Covid- resp issues. 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 < mobility to rt side. does not wear cpap. Last Myocardial Infarction Date:: 2019 History of Any Multi-Drug Resistant Organisms: None Reported Past Surgical History: Section, Heart Catheterization With Stent, Uterine Ablation Additional Past Surgical History / Comment(s): sinus surgery x 3,lithotripsy. loop recorder 03/2023 Past Anesthesia/Blood Transfusion Reactions: No Reported Reaction Date of Last Stent Placement:: 2019 Smoking Status: Former smoker - Past Family History Sister(s) Family Medical History: Cancer Additional Family Medical History / Comment(s): lung cancer at age 31 Father Family Medical History: Coronary Artery Disease (CAD), CVA/TIA Mother Family Medical History: Coronary Artery Disease (CAD) Brother(s) Family Medical History: Coronary Artery Disease (CAD), Pulmonary Embolus Additional Family Medical History / Comment(s): after open heart Medications and Allergies Home Medications Medication Instructions Recorded Confirmed Type Pregabalin [Lyrica] 300 mg PO BID 02/08/14 04/19/24 History traMADol HCL [Ultram] 50 mg PO TID PRN 02/08/14 04/19/24 History Aspirin EC [Ecotrin Low Dose] 81 mg PO DAILY 12/11/22 04/19/24 History lisinopriL [Zestril] 20 mg PO DAILY 12/11/22 04/19/24 History Nitroglycerin Sl Tabs [Nitrostat] 0.4 mg SUBLINGUAL Q5M PRN #20 tab 12/12/22 04/19/24 Rx Unk Vitamin C 1 tab PO DAILY 04/15/24 04/19/24 History Fluticasone/Umeclidin/Vilanter 1 puff INHALATION DAILY 04/15/24 04/19/24 History [Trelegy Ellipta 200-62.5-25] Unk Multi Vitamin 1 tab PO DAILY 04/15/24 04/19/24 History Unk Vitamin D 1 tab PO DAILY 04/15/24 04/19/24 History Allergies Allergy/AdvReac Type Severity Reaction Status Date / Time No Known Allergies Allergy Verified 04/19/24 09:15 Surgical - Exam - General no distress, moderate pain - Eyes normal ocular movement, no pale - ENT normal nares, normal mucosa - Respiratory normal expansion, normal respiratory effort - Abdomen Abdomen: soft, non tender, no distended Assessment and Plan Assessment: OR for bilateral ureteroscopy, holmium laser lithotripsy, stone basketing and stent insertion
[2024-04-19] MEDS: LACTATED RINGERS 1,000 ML IV SCH (09:41)
[2024-04-19] MEDS: IV FLUID CONTINUATION 1,000 ML IV ONE ×2 (09:42→10:11)
[2024-04-19] MEDS: DEXAMETHASONE SOD PHOSPHATE 4 MG/ML 1 ML VIAL IV ONE (09:47)
[2024-04-19] MEDS: ONDANSETRON 4 MG/2 ML VIAL IVP ONE (09:48)
[2024-04-19] MEDS ORDERED: MIDAZOLAM 2 MG/2 ML VIAL ONE (10:07)
[2024-04-19] MEDS ORDERED: fentaNYL (PF) 50 MCG/ML 2 ML AMP ONE (10:07)
[2024-04-19] MEDS ORDERED: LIDOCAINE 1% INJ 10MG/ML (20 ML MDV) ONE (10:07)
[2024-04-19] MEDS ORDERED: PROPOFOL 10 MG/ML 20 ML VIAL IV ONE (10:07)
[2024-04-19] MEDS: IOHEXOL 350 MG/ML 100 ML in EMPTY BAG 1 BAG IRRIGATION ONE (10:38)
--- NOTE | 2024-04-19 11:16 | FL ---
EXAMINATION TYPE: FL guidance operating room DATE OF EXAM: 04/19/2024 CLINICAL HISTORY: Bilateral renal stones. TECHNIQUE: Fluoroscopy. COMPARISON: Abdominal x-ray April 11, 2024. FINDINGS: Fluoroscopic guidance was provided during lithotripsy with bilateral ureter stent insertio n procedure performed by Dr. Velasquez. A total of 33 seconds of fluoroscopic time was utilized during the procedure and 5 spot images was acquired. Total dose area product (DAP) in uGy*m?, mGy*cm? (or s imilar: 0.22261. IMPRESSION: As Above. [facility], , 04/19/2024 11:14 AM
[2024-04-19 11:18] VITALS: TEMP 98.1
--- NOTE | 2024-04-19 11:33 | P.OP ---
Date of Procedure: 04/19/24 Preoperative Diagnosis: Bilateral renal stone Postoperative Diagnosis: Same Procedure(s) Performed: Cystoscopy, bilateral ureteroscopy, holmium laser lithotripsy, stent insertion, right sided stone basketing, left sided incision of a calyceal diverticulum Implants: 6 [place] by 26 cm stent in the bilateral ureter Anesthesia: HAIR Surgeon: Florian Pepe Estimated Blood Loss (ml): 5 Pathology: other (Right renal stone) Condition: stable Disposition: PACU Indications for Procedure: This is a 59-year-old female history of recurrent kidney stones. She has been having symptomatic bilateral flank pain. KUB showed evidence of a 4 mm left- sided renal pelvic stone, and a 3 mm right-sided upper pole stone. She is symptomatic from both stones. Discussed with her the potential that her symptoms are not related to the stone, but at this time she would like to proceed with bilateral ureteroscopy to address it as she indicated the pain is similar to her renal colic. Discussed option of bilateral ureteroscopy, laser, aware of the risk which includes but not limited to bleeding, infection, injury to the ureter Operative Findings: Left-sided upper pole calyceal diverticulum that was incised, no stone seen within the diverticulum, left-sided upper pole stone, right-sided upper pole stone Description of Procedure: Patient brought to the operating room, general anesthesia was induced. She was prepped and draped in sterile fashion placed in dorsolithotomy position. Cystoscopy fitted 21 [place]se sheath was inserted per urethra, cystoscopy was performed showed no abnormality within the bladder attention was then carried to the left ureteral orifice, a sensor wire was advanced through the scope and up the left ureteral orifice, the the wire is advanced all the way up to the left kidney. Next an 1113 [place] access sheath was passed over the wire into the proximal ureter. Next a flexible ureteroscope was inserted through the access sheath, renoscopy was performed which showed a small stone in the upper pole which was dusted, in addition I was able to visualize a radiopaque density at the level of the upper pole but it was not within the calyces, on renoscopy I did see the what appeared to be a diverticular neck, retrograde pyelogram was performed which confirmed the evidence of a diverticulum along the upper pole. At this point using the holmium laser the diverticular neck was incised, and the scope was advanced into the diverticulum, evaluation of the diverticulum showed no evidence of any stones within the diverticulum. Repeat fluoroscopy was performed and it appeared that the stone was more likely to be parenchymal calcification rather than within the diverticulum. At this time pullback ureteroscopy was performed showed no injury to the ureter or any ureteral stones, as ureteroscope was withdrawn a sensor wire was advanced through. Next a ureteral stent was passed over the wire, the proximal curl was visualized on fluoroscopy and the distal curl was visualized using the cystoscope. Attention was then carried to the right side, and a sensor wire was advanced under fluoroscopy into the kidney. Next a 1113 [place] access sheath was passed over the wire and under fluoroscopy into the proximal ureter. Next a flexible ureteroscope was inserted through the access sheath, renoscopy was performed showed a large stone in the upper pole. Using the holmium laser the stone was dusted, sizable fragments of the stone were removed using the stone basket. Repeat renoscopy showed no sizable fragments or injury to the kidney, on fluoroscopy there is no radiopaque density seen's. Pullback ureteroscopy was performed which showed no injury to the ureter or any ureteral stones, as the ureteroscope was withdrawn a sensor wire was advanced through. Next ureteral s tent was passed over the wire, the proximal curl was realized on fluoroscopy and the distal curl was was lysed using cystoscope. The bladder was emptied at the end the case. Patient tolerated procedure well was taken to recovery in stable condition she will follow-up in 1 week for cystoscopy stent removal
[2024-04-19 11:58] VITALS: RESP 16
[2024-04-19] MEDS: KETOROLAC 15 MG/ML 1 ML VIAL IVP STA (12:33)
[2024-04-19 12:51] VITALS: BP 146/81; PULSE 67
== END 2024-04-19 13:16 | disposition home or self-care (01) ==
LOC: OR 08:44
PROVIDERS: ATTEND Urology
DX: N20.0 Calculus of kidney (principal); E78.5 Hyperlipidemia, unspecified; I10 Essential (primary) hypertension; I25.2 Old myocardial infarction; J44.9 Chronic obstructive pulmonary disease, unspecified; M79.7 Fibromyalgia; I25.10 Atherosclerotic heart disease of native coronary artery without angina pectoris; G47.33 Obstructive sleep apnea (adult) (pediatric); Z86.16 Personal history of COVID-19; Z87.891 Personal history of nicotine dependence; Z79.82 Long term (current) use of aspirin; Z79.899 Other long term (current) drug therapy; Z98.890 Other specified postprocedural states
CPT/HCPCS: 52356; 82365; C2625; C1769; J2250; J1100; J0690; J2405; J2003; J3010; J1885; J2704; Q9967

== ENCOUNTER 2024-05-06 15:59 | Observation (INO) | payer MEDICARE, OTHER ==
[2024-05-06 16:22] VITALS: TEMP 97.9
--- NOTE | 2024-05-06 16:47 | ED ---
Chest Pain HPI - General Source: patient, RN notes reviewed, old records reviewed Mode of arrival: ambulatory Limitations: no limitations <Feroz Gaxiola - Last Filed: 05/06/24 16:45> <Letha Lay - Last Filed: 05/09/24 11:54> - General Chief Complaint: Chest Pain Stated Complaint: Abn CT Time Seen by Provider: 05/06/24 16:45 - History of Present Illness Initial Comments: Please note: 59-year-old female presented to the ER for evaluation of shortness of breath. Patient states on 04-19-2024 she underwent kidney stone surgery with . Patient reports since then she has been having shortness of breath. She had x-ray completed yesterday which was negative. Patient was sent for CTA of the chest completed today and was found to have bilateral pulmonary embolisms with evidence of right heart strain. Patient denies a personal history of blood clots and is not currently on blood thinners. Patient does report a chest pressure sensation around 1 PM today. She does take lisinopril and follows up with Dr. Arias as she has cardiac stents and loop recorder in place. (Feroz Gaxiola) (Letha Lay) - Related Data Home Medications Medication Instructions Recorded Confirmed Pregabalin [Lyrica] 300 mg PO BID@0500,1700 02/08/14 05/06/24 traMADol HCL [Ultram] 50 mg PO BID@0500,1700 02/08/14 05/06/24 lisinopriL [Zestril] 20 mg PO DAILY@0500 12/11/22 05/06/24 Previous Rx's Medication Instructions Recorded Apixaban [Eliquis Starter Pack 5 - 10 mg PO DIRECTED 30 Days 05/07/24 (for VTE)] #1 each Allergies Allergy/AdvReac Type Severity Reaction Status Date / Time No Known Allergies Allergy Verified 05/06/24 19:20 Review of Systems ROS Other: All systems not noted in ROS Statement are negative. <Feroz Gaxiola - Last Filed: 05/06/24 16:45> ROS Other: All systems not noted in ROS Statement are negative. <Letha Lay - Last Filed: 05/09/24 11:54> ROS Statement: Those systems with pertinent positive or pertinent negative responses have been documented in the HPI. Past Medical History Past Medical History: COPD, Fibromyalgia, Hyperlipidemia, Hypertension, Myocardial Infarction ([place]), Sleep Apnea/CPAP/BIPAP Additional Past Medical History / Comment(s): ,hx UTI , hx bronchitis,hx kidney stones,silent [place] 2019, not on cholesterol meds. ? irregular heart rhythm has loop recorder. exposure to black mold during Covid- resp issues. 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 < mobility to rt side. does not wear cpap. Last Myocardial Infarction Date:: 2019 History of Any Multi-Drug Resistant Organisms: None Reported Past Surgical History: Section, Heart Catheterization With Stent, Uterine Ablation Additional Past Surgical History / Comment(s): sinus surgery x 3,lithotripsy. loop recorder 03/2023 Past Anesthesia/Blood Transfusion Reactions: No Reported Reaction Date of Last Stent Placement:: 2019 Past Psychological History: Depression Smoking Status: Former smoker Past Alcohol Use History: None Reported Past Drug Use History: None Reported - Past Family History Sister(s) Family Medical History: Cancer Additional Family Medical History / Comment(s): lung cancer at age 31 Father Family Medical History: Coronary Artery Disease (CAD), CVA/TIA Mother Family Medical History: Coronary Artery Disease (CAD) Brother(s) Family Medical History: Coronary Artery Disease (CAD), Pulmonary Embolus Additional Family Medical History / Comment(s): after open heart <Feroz Gaxiola - Last Filed: 05/06/24 16:45> General Exam Limitations: no limitations <Feroz Gaxiola - Last Filed: 05/06/24 16:45> <Letha Lay - Last Filed: 05/09/24 11:54> - General Exam Comments Initial Comments: Visual Physical Exam Vital signs reviewed General: Well-appearing, nontoxic, no acute distress. Head: Normocephalic, atraumatic Eyes: PERRLA, EOMI ENT: Airway patent Chest: Conversational dyspnea mildly diaphoretic Skin: No visual rash, normal skin tone Neuro: Alert and oriented 3 Musculoskeletal: No gross abnormalities (Feroz Gaxiola) PE: CONSTITUTIONAL: [no apparent distress, well appearing] SKIN: [warm, dry, no jaundice, hives or petechiae] EYES:[ pupils are equally round, extraocular movements intact without nystagmus, clear conjunctiva, non-icteric sclera] HENT: [normocephalic, atraumatic, moist mucus membranes, oropharynx clear without exudates] NECK: , [Full range of motion, normal appearance] PULMONARY: [clear to auscultation without wheezes, rhonchi, or rales, normal excursion, no accessory muscle use and no stridor] CARDIOVASCULAR:[ regular rate, rhythm, normal S1 and S2. No appreciated murmurs, rubs or gallops. Strong radial pulses with intact distal perfusion. No lower extremity edema] GASTROINTESTINAL: [soft, active bowel sounds throughout, non-tender, non- distended, no palpable masses, no rebound or guarding. No hepatosplenomegaly] GENITOURINARY: MUSCULOSKELETAL: [Extremities have no gross deformity, no edema, redness, or swelling. No calf swelling ] NEUROLOGIC: [_a/o x 3, GCS 15, normal mentation and speech. Moves all extremities x 4 without motor or sensory deficit] PSYCHIATRIC:[ _normal mood and affect, thought process is clear and linear] (Letha Lay) Course Vital Signs 05/06/24 05/06/24 05/06/24 16:19 19:55 22:33 Temperature 97.9 F Pulse Rate 85 65 Pulse Rate [ 70 Container Finishing Inspector ] Respiratory 18 19 18 Rate Blood Pressure 159/94 133/78 Blood Pressure 122/89 [Left Arm] O2 Sat by Pulse 100 98 96 Oximetry 05/07/24 05/07/24 05/07/24 00:00 03:53 08:00 Temperature Pulse Rate Pulse Rate [ 60 57 L 58 L Container Finishing Inspector ] Respiratory 18 18 18 Rate Blood Pressure Blood Pressure 108/73 116/75 135/91 [Left Arm] O2 Sat by Pulse 92 L 92 L 95 Oximetry 05/07/24 12:00 Temperature Pulse Rate Pulse Rate [ 64 Container Finishing Inspector ] Respiratory 20 Rate Blood Pressure Blood Pressure 154/94 [Left Arm] O2 Sat by Pulse 98 Oximetry Chest Pain MDM <Feroz Gaxiola - Last Filed: 05/06/24 16:45> <Letha Lay - Last Filed: 05/09/24 11:54> - MDM I performed the quick note portion of this chart. Electronically signed by Feroz Gaxiola PA-C (Feroz Gaxiola) Was pt. sent in by a medical professional or institution (WILIAN Vera, GARNETT MACHINE OPERATOR, urgent care, hospital, or [place] [facility] [place] facility...) When possible be specific @Yes pt sent by Dr. Clemons, her PCP, after results of CTA showed bilat PEs Did you speak to anyone other than the patient for history (EMS, parent, family, police, friend...)? What history was obtained from this source @ -No Did you review nursing and triage notes (agree or disagree)? Why? @ -I reviewed nursing and triage notes Were old charts reviewed (outside hosp., previous admission, EMS record, old EKG, old radiological studies, urgent care reports/EKG's, [place] [facility] facility records)? Report findings @ -Medical records reviewed- Reviewed CT PE study, done 05/06/24, showed bilat PEs without right heart strain Differential Diagnosis (chest pain, altered mental status, abdominal pain women, abdominal pain men, vaginal bleeding, weakness, fever, dyspnea, syncope, headache, dizziness, GI bleed, back pain, seizure, CVA, palpatations, mental health, musculoskeletal)? @ -Not applicable EKG interpreted by me (3pts min.). @ -As above X-rays interpreted by me (1pt min.). @ -None done CT interpreted by me (1pt min.). @ -None done U/S interpreted by me (1pt. min.). @ -None done What testing was considered but not performed or refused? (CT, X-rays, U/S, labs)? Why? @ -None What meds were considered but not given or refused? Why? @ -None Did you discuss the management of the patient with other professionals (professionals i.e. WILIAN Vera, GARNETT MACHINE OPERATOR, lab, RT, psych nurse, social work manager, associate professor of surgery, teacher, geospatial program management officer, case management assistant)? Give summary @ -No Was smoking cessation discussed for >3mins.? @ -No Was critical care preformed (if so, how long)? @ -No Were there social determinants of health that impacted care today? How? (Homelessness, low income, unemployed, alcoholism, drug addiction, transp ortation, low edu. Level, literacy, decrease access to med. care, halfway, rehab)? @ -No Was there de-escalation of care discussed even if they declined (Discuss DNR or withdrawal of care, Hospice)? @ -No What co-morbidities impacted this encounter? (DM, HTN, Smoking, COPD, CAD, Cancer, CVA, ARF, Chemo, Hep., AIDS, mental health diagnosis, sleep apnea, morbid obesity)? @ CAD Was patient admitted / discharged? Hospital course, mention meds given and route, prescriptions, significant lab abnormalities, going to OR and other pertinent info. @ Admission- Pt is a 59 y/o female sent in by her PCP after being found to have bilateral PEs on outpatient CTA. Vital signs within acceptable limits on arrival- pt not hypoxic, tachycardic or hypotensive. Unfortunately, due to overflow boarding in the ED, a bed was not immediately available. Orders placed for labs, heparin. Pt denies recent head injuries or black/bloody stools. Discussed plan w/ pt including heparin and anticipated admission. Pt agreeable with POC. Pt roomed and remained in stable condition. Case discussed with Dr. Jimenez, kindly accepts patient for admission. Undiagnosed new problem with uncertain prognosis? @ -No Drug Therapy requiring intensive monitoring for toxicity (Heparin, Nitro, Insulin, Cardizem)? @yes Were any procedures done? @ -No Diagnosis/symptom? @Bilateral PE Acute, or Chronic, or Acute on Chronic? @ acute Uncomplicated (without systemic symptoms) or Complicated (systemic symptoms)? @ complicated Side effects of treatment? @ -No Exacerbation, Progression, or Severe Exacerbation? @ -No Poses a threat to life or bodily function? How? (Chest pain, [place], [place], pneumonia, PE, COPD, DKA, ARF, appy, cholecystitis, CVA, Diverticulitis, Homicidal, Suicidal, threat to staff... and all critical care pts) @ Yes if left untreated could progress to submassive or massive PE and (Letha Lay) Disposition <Feroz Gaxiola - Last Filed: 05/06/24 16:45> <Letha Lay - Last Filed: 05/09/24 11:54> Clinical Impression: Bilateral pulmonary embolism Disposition: ADMITTED IP TO THIS HOSP Condition: Stable
[2024-05-06] MEDS ORDERED: HEPARIN SODIUM 1,000 UN/ML (10ML VL) IV PRN (17:04)
[2024-05-06] MEDS: ASPIRIN 81 MG PO STA (19:57)
[2024-05-06] MEDS: HEPARIN SODIUM 1,000 UN/ML (10ML VL) IV ONE (19:57)
[2024-05-06] MEDS: HEPARIN SOD,PORK IN 0.45% NACL 25,000 UNIT in 0.45% NACL 1 250ML.BAG IV SCH (20:00)
[2024-05-06 20:08] LABS: Partial Thromboplastin Time 22.7 sec (22.0-30.0); Prothrombin Time 10.8 sec (10.0-12.5)
[2024-05-06] MEDS ORDERED: NALOXONE 0.4 MG/ML 1 ML VIAL IV PRN (20:21)
[2024-05-06] MEDS ORDERED: ACETAMINOPHEN TAB 325 MG TAB PO PRN (20:21)
[2024-05-06 20:23] LABS: ALT 33 U/L (4-34); AST 33 U/L (14-36); African American GFR (CKD) 81 (>60 ml/min/1.73 sqM); Albumin 4.3 g/dL (3.5-5.0); Alkaline Phosphatase 133 U/L (38-126); Anion Gap 8 mmol/L; Blood Urea Nitrogen 14 mg/dL (7-17); Calcium 9.9 mg/dL (8.4-10.2); Carbon Dioxide 28 mmol/L (22-30); Chloride 105 mmol/L (98-107); Glucose 96 mg/dL (74-99); Magnesium 2.2 mg/dL (1.6-2.3); Non-African American GFR(CKD) 70 (>60 ml/min/1.73 sqM); Potassium 4.6 mmol/L (3.5-5.1); Sodium 141 mmol/L (137-145); Total Bilirubin 0.7 mg/dL (0.2-1.3); Total Protein 7.2 g/dL (6.3-8.2)
[2024-05-06 20:31] LABS: NT-Pro-B-Type Natriuretic Pept 26 pg/mL
[2024-05-06] MEDS: FAMOTIDINE 20 MG TAB PO SCH (20:50)
[2024-05-06 22:10] LABS: Appearance,Urine Cloudy (Clear); Bacteria,Urine Occasional /hpf; Bilirubin,Urine Negative (Negative); Blood,Urine Negative (Negative); Budding Yeast,Urine Rare /hpf; Color,Urine Light Yellow; Glucose,Urine (UA) Negative (Negative); Ketones,Urine Trace (Negative); Leukocyte Esterase,Urine Negative (Negative); Mucus,Urine Rare /hpf; Nitrite,Urine Negative (Negative); Protein,Urine Negative (Negative); RBC,Urine 2 /hpf (0-5); Specific Gravity,Urine 1.039 (1.001-1.035); Squamous Epithelial Cell,Urine 1 /hpf (0-4); Urobilinogen,Urine <2.0 mg/dL (<2.0); WBC,Urine 2 /hpf (0-5)
--- NOTE | 2024-05-06 23:35 | P.HPIM ---
History of Present Illness H&P Date: 05/06/24 Patient is a 59-year-old female with history of COPD not on home oxygen, hypertension, CAD status post 1 stent, recurrent nephrolithiasis was directed to come to ER by her PCP in the afternoon after her outpatient CTA chest was positive for pulmonary embolism. Patient underwent urology procedure on 04/19/2024 for her bilateral kidney stones. Patient reports that her mobility was affected due to pain postsurgery and she would be resting longer than usual. Patient reports that she started experiencing exertional dyspnea since last week associated with intermittent sweating and chest tightness. Patient reports that she could only walk about 20 feet before having to catch her breath and was also endorsing difficulty in performing her daily activities. Patient was seen by her PCP Dr. Clemons for her symptoms yesterday. Chest x-ray was negative and patient was advised to get CTA of the chest to r/o PE. CTA of the chest was positive for bilateral pulmonary emboli and patient received a call from her PCPs office to come to the ER for further treatment and management. Patient denies history of blood clots. Patient denies any recent travel, not on any blood thinner. Laboratory data: PT 10.8, INR 1.0, APTT 22.7, sodium 141, potassium 4.6, chloride 105, bicarb 28, BUN 14, creatinine 0.89, glucose 96, calcium 9.9, magnesium 2.2, total bili 0.7, AST 33, ALT 33, ALP 133, troponin I less than 0.012, NT proBNP 26, albumin 4.3, Urinalysis is negative for proteinuria, hematuria, nitrite and leukocyte esterase. Positive for trace urine ketones. Images: CT angio of the chest indicates bilateral pulmonary emboli without evidence of the right heart strain. There are filling defects within the left upper lobe and right lower and upper lobe segmental and subsegmental pulmonary arteries. Vitals: Temperature 97.9 F, heart rate 85, respiratory 18, blood pressure 159/94, oxygen saturation 100% room air Review of systems: Pertinent positives and negatives as discussed in HPI, a complete review of systems was performed and all other systems are negative. Social history: Tobacco: Quit 2019, 1 pack/day x 7 years Alcohol: None Recreational drugs: None Travel: None Family History: History of CAD in family Brother of pulmonary embolism Physical examination: Vital signs reviewed General: non toxic, no distress, appears older than stated age, obese Derm: no unusual rashes/lesions, warm Head: atraumatic, normocephalic, symmetric Eyes: EOMI, no lid lag, anicteric sclera, pupils equal round reactive to light ENT: Nose and ears atraumatic Neck: No cervical lymphadenopathy, trachea midline, supple Mouth: no lip lesion, mucus membranes moist Cardiovascular: S1S2 reg, no murmur, positive dorsalis pedis pulse bilateral, no edema Lungs: CTA bilateral, no rhonchi, no rales, no accessory muscle use Abdominal: soft, nontender to palpation, no guarding Ext: muscle strength 5 out of 5 in all 4 extremities grossly, no gross muscle atrophy, no contractures, Neuro: CN II-XI grossly intact, no gross focal neuro deficits Psych: Alert, oriented, appropriate affect Assessment/Plan: This is a Patient is a 59-year-old female with history of COPD not on home oxygen, hypertension, CAD status post 1 stent, recurrent nephrolithiasis presents with complaint of shortness of breath and was redirected to come to ER by her PCP in the afternoon after her outpatient CTA chest was positive for pulmonary embolism.. Case was discussed with the Emergency Room provider and decision was made to admit the patient for nonmassive pulmonary embolism. #Nonmassive pulmonary embolism, likely provoked in the setting of her recent urology procedure Patient hemodynamically stable CT angio of the chest indicates bilateral pulmonary emboli without evidence of the right heart strain. Status post aspirin 325 mg p.o. once stat in ED Status post heparin 7910 units IVP in ED Patient currently on heparin drip at 18 units/kg/h Continue monitoring APTT Consult cardiology Order echocardiogram Continue cardiac telemetry #Elevated alkaline phosphatase ALP 133 Continue monitor Chronic conditions: Hypertension: Resume lisinopril 20 mg p.o. daily Neuropathy: Resume Lyrica 300 mg p.o. twice daily DVT prophylaxis: Heparin drip GI prophylaxis: Pepcid 20 mg p.o. daily F: None E: Replete as needed N: Heart healthy diet A: Patient ambulatory at baseline The patient is admitted with an anticipated less than than 2 midnight stay for evaluation of nonmassive pulmonary embolism CODE STATUS: Full code Discussed with: Patient Anticipated discharge place: Pending clinical course Dictation was produced using needmadeation software. Please excuse any grammatical, word or spelling errors. I have seen and evaluated the patient today. I Discussed the case with the resident and agree with the resident's findings I edited the assessment and plan as necessary as documented in the resident's note. Past Medical History Past Medical History: COPD, Fibromyalgia, Hyperlipidemia, Hypertension, Myocardial Infarction ([place]), Sleep Apnea/CPAP/BIPAP Additional Past Medical History / Comment(s): ,hx UTI , hx bronchitis,hx kidney stones,silent [place] 2019, not on cholesterol meds. ? irregular heart rhythm has loop recorder. exposure to black mold during Covid- resp issues. 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 < mobility to rt side. does not wear cpap. Last Myocardial Infarction Date:: 2019 History of Any Multi-Drug Resistant Organisms: None Reported Past Surgical History: Section, Heart Catheterization With Stent, Uterine Ablation Additional Past Surgical History / Comment(s): sinus surgery x 3,lithotripsy. loop recorder 03/2023 Past Anesthesia/Blood Transfusion Reactions: No Reported Reaction Date of Last Stent Placement:: 2019 Past Psychological History: Depression Smoking Status: Former smoker Past Alcohol Use History: None Reported Past Drug Use History: None Reported - Past Family History Sister(s) Family Medical History: Cancer Additional Family Medical History / Comment(s): lung cancer at age 31 Father Family Medical History: Coronary Artery Disease (CAD), CVA/TIA Mother Family Medical History: Coronary Artery Disease (CAD) Brother(s) Family Medical History: Coronary Artery Disease (CAD), Pulmonary Embolus Additional Family Medical History / Comment(s): after open heart Medications and Allergies Home Medications Medication Instructions Recorded Confirmed Type Pregabalin [Lyrica] 300 mg PO BID@0500,1700 02/08/14 05/06/24 History traMADol HCL [Ultram] 50 mg PO BID@0500,1700 02/08/14 05/06/24 History lisinopriL [Zestril] 20 mg PO DAILY@0500 12/11/22 05/06/24 History Allergies Allergy/AdvReac Type Severity Reaction Status Date / Time No Known Allergies Allergy Verified 05/06/24 19:20 Physical Exam Vitals: Vital Signs Temp Pulse Resp BP Pulse Ox 05/06/24 19:55 65 19 133/78 98 05/06/24 16:19 97.9 F 85 18 159/94 100 Intake and Output 05/06/24 05/06/24 05/06/24 06:59 14:59 22:59 Other: Weight 98.883 kg Results CBC & Chem 7: 05/06/24 19:33 Labs: Abnormal Lab Results - Last 24 Hours (Table) 05/06/24 Range/Units 19:33 Alkaline Phosphatase 133 H (38-126) U/L
[2024-05-07] MEDS: PREGABALIN 100 MG CAP PO SCH (05:09)
[2024-05-07] MEDS: traMADol 50 MG TAB PO SCH (05:09)
[2024-05-07] MEDS: lisinopriL 20 MG TAB PO SCH (05:10)
--- NOTE | 2024-05-07 08:12 | P.CRDCN ---
History of Present Illness Consult date: 05/07/24 History of present illness: The patient is a pleasant 59-year-old female patient with a past medical significant for CAD with prior stenting was performed at [facility] in 2019 with unknown details as well as overweight and hypertension and dyslipidemia presented to the hospital complaining of shortness of breath. She underwent recently a stone removal from the kidney. The after that she has been experiencing shortness of breath with exertion which she underwent further evaluation including a chest x-ray did not show any acute abnormalities but subsequently CT scan of the chest showed pulmonary embolism with no evidence of RV strain. NT proBNP came to be within normal limits. Troponin is within normal limits. No symptoms of any chest pain or chest discomfort or dizziness or lightness and she is not tachycardic nor hypoxic. She was started on heparin IV with significant improvement in the shortness of breath. No history of pulmonary embolism in the past but she stated that she had a family history of thromboembolism in the family with unknown details. The EKG showed sinus rhythm with sinus of bradycardia. NT proBNP is within normal limits. Troponin is within normal limits. The physical examination is remarkable for regular rhythm with a soft systolic murmur and clear breathing sounds bilaterally and no edema was noted in the lower extremities and no lower extremities discomfort as well. Assessment None massive pulmonary embolism CAD with prior revascularization with unknown details Multiple comorbid conditions Plan DC heparin and start the patient on oral anticoagulation Obtain an echocardiogram for risk stratification Possible discharge in the next 12 to 24 hours Obtain lower extremities venous duplex study Past Medical History Past Medical History: COPD, Fibromyalgia, Hyperlipidemia, Hypertension, Myocardial Infarction ([place]), Sleep Apnea/CPAP/BIPAP Additional Past Medical History / Comment(s): ,hx UTI , hx bronchitis,hx kidney stones,silent [place] 2019, not on cholesterol meds. ? irregular heart rhythm has loop recorder. exposure to black mold during Covid- resp issues. 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 < mobility to rt side. does not wear cpap. Last Myocardial Infarction Date:: 2019 History of Any Multi-Drug Resistant Organisms: None Reported Past Surgical History: Section, Heart Catheterization With Stent, Uterine Ablation Additional Past Surgical History / Comment(s): sinus surgery x 3,lithotripsy. loop recorder 03/2023 Past Anesthesia/Blood Transfusion Reactions: No Reported Reaction Date of Last Stent Placement:: 2019 Past Psychological History: Depression Smoking Status: Former smoker Past Alcohol Use History: None Reported Past Drug Use History: None Reported - Past Family History Sister(s) Family Medical History: Cancer Additional Family Medical History / Comment(s): lung cancer at age 31 Father Family Medical History: Coronary Artery Disease (CAD), CVA/TIA Mother Family Medical History: Coronary Artery Disease (CAD) Brother(s) Family Medical History: Coronary Artery Disease (CAD), Pulmonary Embolus Additional Family Medical History / Comment(s): after open heart Medications and Allergies Home Medications Medication Instructions Recorded Confirmed Type Pregabalin [Lyrica] 300 mg PO BID@0500,1700 02/08/14 05/06/24 History traMADol HCL [Ultram] 50 mg PO BID@0500,1700 02/08/14 05/06/24 History lisinopriL [Zestril] 20 mg PO DAILY@0500 12/11/22 05/06/24 History Allergies Allergy/AdvReac Type Severity Reaction Status Date / Time No Known Allergies Allergy Verified 05/06/24 19:20 Physical Exam Vitals: Vital Signs Temp Pulse Pulse Resp BP BP Pulse Ox 05/07/24 03:53 57 L 18 116/75 92 L 05/07/24 00:00 60 18 108/73 92 L 05/06/24 22:33 70 18 122/89 96 05/06/24 19:55 65 19 133/78 98 05/06/24 16:19 97.9 F 85 18 159/94 100 Intake and Output 05/06/24 05/07/24 05/07/24 22:59 06:59 14:59 Intake Total 100.268 Balance 100.268 Intake: Intake, IV Titration 100.268 Amount Heparin Sod,Pork in 0.45% 100.268 NaCl 25,000 unit In 0.45 % NaCl 1 250ml.bag @ 18 UNITS/KG/HR 17.799 mls/hr IV .Q14H3M [facility] Rx#: [id number] Other: # Voids 1 Weight 98.883 kg Results 05/06/24 19:33 Cardiac Enzymes 05/06/24 05/06/24 Range/Units 19:33 19:33 AST 33 (14-36) U/L Troponin I <0.012 (0.000-0.034) ng/mL Coagulation 05/06/24 05/06/24 Range/Units 19:33 23:40 PT 10.8 (10.0-12.5) sec APTT 22.7 >200.0 H* (22.0-30.0) sec Comprehensive Metabolic Panel 05/06/24 Range/Units 19:33 Sodium 141 (137-145) mmol/L Potassium 4.6 (3.5-5.1) mmol/L Chloride 105 (98-107) mmol/L Carbon Dioxide 28 (22-30) mmol/L BUN 14 (7-17) mg/dL Creatinine 0.89 (0.52-1.04) mg/dL Glucose 96 (74-99) mg/dL Calcium 9.9 (8.4-10.2) mg/dL AST 33 (14-36) U/L ALT 33 (4-34) U/L Alkaline Phosphatase 133 H (38-126) U/L Total Protein 7.2 (6.3-8.2) g/dL Albumin 4.3 (3.5-5.0) g/dL Current Medications Generic Name Dose Route Start Last Admin Trade Name Freq PRN Reason Stop Dose Admin Acetaminophen 650 mg 05/06/24 20:21 Acetaminophen Tab 325 Mg Tab PO Q6HR PRN Mild Pain or Fever > 100.5 Famotidine 20 mg 05/06/24 21:00 05/06/24 20:50 Famotidine 20 Mg Tab PO 20 mg BID YOSI Administration Heparin Sodium (Porcine) 0 unit 05/06/24 17:04 Heparin Sodium 1,000 Un/Ml (10ml Vl) IV PER PROTOCOL PRN Low PTT Protocol Heparin Sodium/Sodium Chloride 250 mls @ 17.799 mls/hr 05/06/24 17:15 05/07/24 03:47 25,000 unit/ Sodium Chloride IV 14 units/kg/hr .Q14H3M YOSI 13.844 mls/hr Titration Protocol 18 UNITS/KG/HR Lisinopril 20 mg 05/07/24 05:00 05/07/24 05:10 Lisinopril 20 Mg Tab PO 20 mg DAILY@0500 YOSI Administration Naloxone HCl 0.2 mg 05/06/24 20:21 Naloxone 0.4 Mg/Ml 1 Ml Vial IV Q2M PRN Opioid Reversal Pregabalin 300 mg 05/07/24 05:00 05/07/24 05:09 Pregabalin 100 Mg Cap PO 300 mg BID@0500,1700 YOSI Administration Tramadol HCl 50 mg 05/07/24 05:00 05/07/24 05:09 Tramadol 50 Mg Tab PO 50 mg BID@0500,1700 YOSI Administration Intake and Output 05/06/24 05/07/24 05/07/24 22:59 06:59 14:59 Intake Total 100.268 Balance 100.268 Intake: Intake, IV Titration 100.268 Amount Heparin Sod,Pork in 0.45% 100.268 NaCl 25,000 unit In 0.45 % NaCl 1 250ml.bag @ 18 UNITS/KG/HR 17.799 mls/hr IV .Q14H3M [facility] Rx#: [id number] Other: # Voids 1 Weight 98.883 kg 05/06/24 19:33
[2024-05-07] MEDS: APIXABAN 5 MG TAB PO SCH (08:43)
[2024-05-07 09:21] LABS: Basophils # (A) 0.1 k/uL (0-0.2); Basophils % (A) 1 %; Eosinophils # (A) 0.4 k/uL (0-0.7); Eosinophils % (A) 8 %; HCT 42.9 % (34.0-46.0); HGB 14.1 gm/dL (11.4-16.0); Lymphocytes # (A) 2.3 k/uL (1.0-4.8); Lymphocytes % (A) 40 %; MCH 29.1 pg (25.0-35.0); MCHC 32.9 g/dL (31.0-37.0); MCV 88.6 fL (80.0-100.0); Monocytes # (A) 0.2 k/uL (0-1.0); Monocytes % (A) 4 %; Neutrophils # (A) 2.6 k/uL (1.3-7.7); Neutrophils % (A) 45 %; Platelet Count 410 k/uL (150-450); RBC 4.84 m/uL (3.80-5.40); RDW 13.9 % (11.5-15.5); WBC 5.8 k/uL (3.8-10.6)
--- NOTE | 2024-05-07 10:56 | US ---
EXAMINATION TYPE: US venous doppler duplex LE BI DATE OF EXAM: 05/07/2024 10:16 AM COMPARISON: NONE CLINICAL INDICATION: Female, 59 years old with history of r/o DVT; Bilateral PE, Pain TECHNIQUE: The lower extremity deep venous system is examined utilizing real time linear array sonog chapis with graded compression, color doppler sonography, and spectral doppler. SIDE PERFORMED: Bilateral FINDINGS: VESSELS IMAGED: Common Femoral Vein Deep Femoral Vein Greater Saphenous Vein * Femoral Vein Popliteal Vein Small Saphenous Vein * Proximal Calf Veins (* superficial vessels) The deep venous systems of both lower extremities from the common femoral remains to the proximal danny f veins are patent and compressible with augmentable flow and with normal waveforms. IMPRESSION: No evidence of bilateral lower extremity DVT from the common femoral veins to the proximal calf veins [facility], Workstation: KENIA 05/07/2024 10:53 AM
--- NOTE | 2024-05-07 11:34 | P.PN ---
Subjective Progress Note Date: 05/07/24 59-year-old female with history of COPD not on home oxygen, hypertension, CAD status post 1 stent, recurrent nephrolithiasis was directed to come to ER by her PCP in the afternoon after her outpatient CTA chest was positive for pulmonary embolism. Patient underwent urology procedure on 04/19/2024 for her bilateral kidney stones. Patient reports that her mobility was affected due to pain postsurgery and she would be resting longer than usual. Patient reports that she started experiencing exertional dyspnea since last week associated with intermittent sweating and chest tightness. Vital signs in the ED Temperature 97.9 F, heart rate 85, respiratory 18, blood pressure 159/94, oxygen saturation 100% room air. PT 10.8, INR 1.0, APTT 22.7, sodium 141, potassium 4.6, chloride 105, bicarb 28, BUN 14, creatinine 0.89, glucose 96, calcium 9.9, magnesium 2.2, total bili 0.7, AST 33, ALT 33, ALP 133, troponin I less than 0.012, NT proBNP 26, albumin 4.3. Urinalysis is negative for proteinuria, hematuria, nitrite and leukocyte esterase. Positive for trace urine ketones. CT angio of the chest indicates bilateral pulmonary emboli without evidence of the right heart strain. Patient was started on heparin infusion and admitted for Cardiology evaluation. Switched from heparin drip to Eliquis. 05/07 Patient was seen and examined. Feeling well. Wants to go home. Echocardiogram is pending. CBC unremarkable. APTT 43.9. General: non toxic, no distress, appears at stated age Derm: warm, dry Head: atraumatic, normocephalic, symmetric Eyes: EOMI, no lid lag, anicteric sclera Mouth: no lip lesion, mucus membranes moist Cardiovascular: good distal perfusion in all 4 extremities Lungs: breathing comfortably, no accessory muscle use Ext: no gross muscle atrophy, no edema, no contractures Neuro: no focal neuro deficits Psych: Alert, oriented, appropriate affect Based on my assessment of this patient, this patient meets a high complexity level of care. PE: Likely provoked. Eliquis 10 mg PO BID. Venous duplex neg for DVT. Echo is pending. Telemetry monitoring. Cardiology on board. Hypertension: Lisinopril 20 mg PO QD. Neuropathy: Lyrica 300 mg PO BID. CAD with stenting: Patient would benefit from ASA and statin, possibly a beta goldie. Defer to PCP. COPD not in acute exacerbation Plans for discharge home after Echo is read. CODE STATUS: FULL CODE DVT Prophylaxis: Eliquis. GI Prophylaxis: Pepcid. Designated medical POA if patient is not able to make medical decisions for themselves: I have reviewed the following telecommunications consultant notes: Cardiology. I have reviewed the results of the following tests: CBC, APTT. I have ordered the following tests: I have discussed the care of this patient with the following independent historian: I have independently interpreted the following test below: I have discussed the management of this patient with the following physician: Objective - Vital Signs Vital signs: Vital Signs Temp 97.9 F 05/06/24 16:19 Pulse 58 L 05/07/24 08:00 Resp 18 05/07/24 08:00 BP 135/91 05/07/24 08:00 Pulse Ox 95 05/07/24 08:00 FiO2 Intake & Output 05/06/24 05/07/24 05/07/24 18:59 06:59 18:59 Intake Total 100.268 Balance 100.268 Weight 98.883 kg 98.883 kg Intake: Intake, IV Titration 100.268 Amount Heparin Sod,Pork in 0.45% 100.268 NaCl 25,000 unit In 0.45 % NaCl 1 250ml.bag @ 18 UNITS/KG/HR 17.799 mls/hr IV .[id number] [facility] Rx#: [id number] Other: # Voids 1 - Labs CBC & Chem 7: 05/07/24 09:04 05/06/24 19:33 Labs: Abnormal Lab Results - Last 24 Hours (Table) 05/06/24 05/06/24 05/06/24 Range/Units 19:33 21:30 23:40 APTT >200.0 H* (22.0-30.0) sec Alkaline Phosphatase 133 H (38-126) U/L Urine Appearance Cloudy H (Clear) Ur Specific [place] 1.039 H (1.001-1.035) Urine Ketones Trace H (Negative) Urine Bacteria Occasional H (None) /hpf Urine Mucus Rare H (None) /hpf Urine Yeast (Budding) Rare H (None) /hpf 05/07/24 Range/Units 09:04 APTT 43.9 H (22.0-30.0) sec Alkaline Phosphatase (38-126) U/L Urine Appearance (Clear) Ur Specific [place] (1.001-1.035) Urine Ketones (Negative) Urine Bacteria (None) /hpf Urine Mucus (None) /hpf Urine Yeast (Budding) (None) /hpf
[2024-05-07 12:38] VITALS: BP 154/94; PULSE 64; RESP 20
--- NOTE | 2024-05-07 16:15 | CA ---
Transthoracic Echo Report Name: Ashley Venegas Age: 59 Gender: F : 1965 Exam Date: 05/07/2024 11:05 Exam Location: [place] [facility] Ht (in): 69 Wt (lb): 218 Ordering Physician: Letha Lay MD Attending/Referring Phys: Program Proposals Coordinator Leslie Varner RDCS Procedure CPT: Indications: bilat PE Cardiac Hx: Technical Quality: Fair Contrast 1: Definity Total Dose (mL): 2 Contrast 2: Total Dose (mL): MEASUREMENTS (Male / Female) Normal Values 2D ECHO LV Diastolic Diameter PLAX 2.8 cm 4.2 - 5.9 / 3.9 - 5.3 cm LV Systolic Diameter PLAX 1.4 cm IVS Diastolic Thickness 1.2 cm 0.6 - 1.0 / 0.6 - 0.9 cm LVPW Diastolic Thickness 1.2 cm 0.6 - 1.0 / 0.6 - 0.9 cm LV Relative Wall Thickness 0.8 RV Internal Dim ED PLAX 3.5 cm LVOT Diameter 1.7 cm LV Diastolic Volume MOD BP 60.3 cm??? 67 - 155 / 56 - 104 cm??? LV Systolic Volume MOD BP 35.3 cm??? 22 - 58 / 19 - 49 cm??? LV Ejection Fraction MOD BP 41.5 % >= 55 % LV Cardiac Index MOD BP 719.9 cm???/min???m??? LV Diastolic Volume MOD 4C 72.5 cm??? LV Systolic Volume MOD 4C 37.6 cm??? LV Ejection Fraction MOD 4C 48.0 % LV Cardiac Index MOD 4C 1001.0 cm???/min???m??? LV Diastolic Length 4C 8.1 cm LV Systolic Length 4C 6.8 cm LV Diastolic Volume MOD 2C 49.5 cm??? LV Systolic Volume MOD 2C 25.0 cm??? LV Ejection Fraction MOD 2C 49.6 % LV Cardiac Index MOD 2C 705.6 cm???/min???m??? LV Diastolic Length 2C 7.9 cm LV Systolic Length 2C 6.1 cm LA Volume 41.6 cm??? 18 - 58 / 22 - 52 cm??? LA Volume Index 18.7 cm???/m??? 16 - 28 cm???/m??? DOPPLER AV Peak Velocity 156.9 cm/s AV Peak Gradient 9.8 mmHg AV Mean Velocity 121.3 cm/s AV Mean Gradient 6.1 mmHg AV Velocity Time Integral 35.1 cm LVOT Peak Velocity 98.1 cm/s LVOT Peak Gradient 3.9 mmHg LVOT Velocity Time Integral 20.5 cm LVOT Stroke Volume 47.9 cm??? LVOT Stroke Volume Index 22.3 ml/m??? LVOT Cardiac Index 1376.4 cm???/min???m??? AV Area Cont Eq vti 1.4 cm??? AV Area Cont Eq pk 1.5 cm??? MV Area PHT 3.3 cm??? Mitral E Point Velocity 45.6 cm/s Mitral A Point Velocity 83.3 cm/s Mitral E to A Ratio 0.5 MV Deceleration Time 227.0 ms MV E' Velocity 5.0 cm/s Mitral E to MV E' Ratio 9.2 FINDINGS Left Ventricle Mildly increased left ventricular wall thickness. Left ventricular cavity size normal. Mildly reduced global left ventricular systolic function. Left ventricular ejection fraction is estimated at 50 %. Grade 1 diastolic dysfunction. Right Ventricle Normal right ventricular size and function. Right ventricular systolic pressure within normal limits. TAPSE is normal. Right Atrium Normal right atrial size. Left Atrium Normal left atrial size. Mitral Valve Structurally normal mitral valve. Aortic Valve Trileaflet aortic valve. No aortic valve stenosis or regurgitation. Tricuspid Valve Structurally normal tricuspid valve. Mild tricuspid regurgitation. Pulmonic Valve Structurally normal pulmonic valve. Trace pulmonic regurgitation. Pericardium No pericardial effusion. Aorta Normal size aortic root and proximal ascending aorta. CONCLUSIONS Technically difficult study for interpretation Low normal LV systolic function with EF at 50% Poorly visualized intracardiac valves Previewed by: Dr. Mukund Serra MD (Electronically Signed) Final Date: 07 May 2024 16:15
--- NOTE | 2024-05-07 17:25 | P.DS ---
Providers Date of admission: 05/06/24 20:22 Expected date of discharge: 05/07/24 Attending physician: Janny Jimenez MD Consults: 05/06/24 20:21 Consult Physician Routine Consulting Provider: Eros Arias Consult Reason/Comments: Bilat PE Do you want consulting provider notified?: Yes, Notify in am Primary care physician: Trixie Clemons MD Hospital Course: 59-year-old female with history of COPD not on home oxygen, hypertension, CAD status post 1 stent, recurrent nephrolithiasis was directed to come to ER by her PCP in the afternoon after her outpatient CTA chest was positive for pulmonary embolism. Patient underwent urology procedure on 04/19/2024 for her bilateral kidney stones. Patient reports that her mobility was affected due to pain postsurgery and she would be resting longer than usual. Patient reports that she started experiencing exertional dyspnea since last week associated with intermittent sweating and chest tightness. Vital signs in the ED Temperature 97.9 F, heart rate 85, respiratory 18, blood pressure 159/94, oxygen saturation 100% room air. PT 10.8, INR 1.0, APTT 22.7, sodium 141, potassium 4.6, chloride 105, bicarb 28, BUN 14, creatinine 0.89, glucose 96, calcium 9.9, magnesium 2.2, total bili 0.7, AST 33, ALT 33, ALP 133, troponin I less than 0.012, NT proBNP 26, albumin 4.3. Urinalysis is negative for proteinuria, hematuria, nitrite and leukocyte esterase. Positive for trace urine ketones. CT angio of the chest indicates bilateral pulmonary emboli without evidence of the right heart strain. Patient was started on heparin infusion and admitted for Cardiology evaluation. Switched from heparin drip to Eliquis. 05/07 Patient was seen and examined. Feeling well. Wants to go home. Echocardiogram is pending. CBC unremarkable. APTT 43.9. Echo shows EF 50% with some diastolic dysfunction. She would like to go home. Discharge Plans: Eliquis prescribed to pharmacy. Advised atleast 3 months of treatment. Follow up with PCP within 1-2 days of discharge. Follow up with her Director Of Women'S Services Dr. Arias within 1 week of discharge. General: non toxic, no distress, appears at stated age Derm: warm, dry Head: atraumatic, normocephalic, symmetric Eyes: EOMI, no lid lag, anicteric sclera Mouth: no lip lesion, mucus membranes moist Cardiovascular: Normal S1 S2 . No mumurs, rubs or gallops Lungs: Clear to auscultation bilaterally, no accessory muscle use Ext: no gross muscle atrophy, no edema, no contractures Neuro: no focal neuro deficits Psych: Alert, oriented, appropriate affect Discharge Diagnosis: Pulmonary Embolus Hypertension: Neuropathy CAD with stenting COPD not in acute exacerbation This complex discharge took 35 minutes to complete. Patient Condition at Discharge: Stable Plan - Discharge Summary Discharge Rx Participant: No New Discharge Prescriptions: New Apixaban [Eliquis Starter Pack (for VTE)] 5 - 10 mg PO DIRECTED 30 Days #1 each Continue traMADol HCL [Ultram] 50 mg PO BID@0500,1700 Pregabalin [Lyrica] 300 mg PO BID@0500,1700 lisinopriL [Zestril] 20 mg PO DAILY@0500 Discharge Medication List Pregabalin [Lyrica] 300 mg PO BID@0500,1700 02/08/14 [History] traMADol HCL [Ultram] 50 mg PO BID@0500,1700 02/08/14 [History] lisinopriL [Zestril] 20 mg PO DAILY@0500 12/11/22 [History] Apixaban [Eliquis Starter Pack (for VTE)] 5 - 10 mg PO DIRECTED 30 Days #1 each 05/07/24 [Rx] Follow up Appointment(s)/Referral(s): Ian Dai [STAFF PHYSICIAN] - 1 Week Mukund Serra MD [STAFF PHYSICIAN] - 1 Week Trixie Clemons MD [Primary Care Provider] - 1-2 days
[2024-05-14] MEDS ORDERED: APIXABAN 5 MG TAB PO SCH (09:00)
== END 2024-05-07 17:07 | disposition home or self-care (01) ==
LOC: EC 15:59 → 3SCARD 20:22 → INTOOBSV 20:22 → 3SCARD 20:43
PROVIDERS: ADMIT Internal Medicine; ATTEND Internal Medicine
DX: I26.99 Other pulmonary embolism without acute cor pulmonale (principal); I10 Essential (primary) hypertension; G62.9 Polyneuropathy, unspecified; I25.10 Atherosclerotic heart disease of native coronary artery without angina pectoris; J44.9 Chronic obstructive pulmonary disease, unspecified; F32.A Depression, unspecified; G47.30 Sleep apnea, unspecified; E78.5 Hyperlipidemia, unspecified; I25.2 Old myocardial infarction; M79.7 Fibromyalgia; Z87.891 Personal history of nicotine dependence; Z95.5 Presence of coronary angioplasty implant and graft
CPT/HCPCS: 96365; 96366 ×2; 99285; 36415; 83880; 80053; 83735; 84484; 85025; 85610; 85730 ×2; 81001; 93970; G0378 ×2; C8929; Q9957; J1644 ×2; 93306

== ENCOUNTER → 2024-07-05 | Outpatient (CLI) | payer MEDICARE, OTHER ==
--- NOTE | 2024-07-05 16:17 | CT ---
EXAMINATION TYPE: CT angio chest DATE OF EXAM: 07/05/2024 COMPARISON: 05/06/2024 CLINICAL INDICATION: Female, 59 years old with history of I26.99 Pulmonary embolism; PHH, Pt was foun d to have blood clots in both lungs 2 months ago, still not feeling well having fatigue and SOB. TECHNIQUE: CTA scan of the thorax is performed with IV Contrast, patient injected with 100ml mL of Isovue 370, p ulmonary embolism protocol. MIP images are created and reviewed. CT DLP: [address] CTDI: mGy Automated exposure control for dose reduction was used. FINDINGS: The multiple filling defects within the segmental and subsegmental pulmonary arterial circulation hav e resolved with the interval with the exception of a single small filling defect in one of the subseg mental branches in the left lower lobe. There is no mediastinal, hilar or axillary adenopathy. There is no suspicious lung mass or nodule. No pleural effusion or pneumothorax. IMPRESSION: Marked interval improvement in the bilateral pulmonary emboli with a single small embolus in one of t he left lower lobe segmental branches. No new abnormality seen. [facility], , 07/05/2024 4:15 PM
== END | disposition home or self-care (01) ==
LOC: RADCTMAIN 15:03
PROVIDERS: ATTEND Internal Medicine Hematology & Oncology
DX: I26.99 Other pulmonary embolism without acute cor pulmonale (principal); D68.59 Other primary thrombophilia; I10 Essential (primary) hypertension; N20.0 Calculus of kidney
CPT/HCPCS: 71275; Q9967